=== PATIENT | female | born 1965 | race Caucasian/White ===

== ENCOUNTER → 2020-10-21 | Outpatient (CLI) | payer OTHER ==
[2020-10-26 16:07] LABS: HPV 16 Negative (Negative); HPV 18 Negative (Negative); HPV OTHER HR TYPES Negative (Negative)
== END | disposition home or self-care (01) ==
LOC: LAB 18:50 → LAB SHORT 18:50
PROVIDERS: Physician Assistant
DX: Z01.419 Encounter for gynecological examination (general) (routine) without abnormal findings (principal)
CPT/HCPCS: 87624; G0123

== ENCOUNTER → 2021-01-18 | Outpatient (CLI) | payer OTHER ==
[2021-01-21 02:08] LABS: CHLAMYDIA TRACHOMATIS, NAA Negative (Negative)
== END ==
LOC: LAB SHORT 15:00 → LAB 15:00
PROVIDERS: Physician Assistant
DX: Z11.3 Encounter for screening for infections with a predominantly sexual mode of transmission (principal)
CPT/HCPCS: 87491; 87591

== ENCOUNTER 2021-06-10 10:55 | Inpatient (IN) | payer OTHER ==
[~2021-06-10] VITALS: Ht 170.2 cm; Wt 58.0 kg
[2021-06-10 11:31] LABS: Hematocrit 35.8 % (33.0-51.0); Hemoglobin 12.6 g/dL (11.5-16.0); Mean Corpuscular HGB 30.4 pg (26.0-34.0); Mean Corpuscular HGB Conc 35.2 g/dL (31.5-36.5); Mean Corpuscular Volume 86 fL (80-100); Mean Platelet Volume 10.2 fL (9.1-12.4); Platelet Count 446 K/mm3 (150-400); RDW Coefficient Variation 12.8 % (11.7-14.2); RDW Standard Deviation 40.3 fL (35.1-46.3); Red Blood Cell Count 4.15 M/mm3 (3.80-5.20); White Blood Cell Count 22.77 K/mm3 (4.00-11.30)
[2021-06-10 11:51] LABS: Alanine Aminotransfer (ALT/SGP 76 U/L (12-78); Albumin, Blood 2.7 g/dL (3.4-5.0); Albumin/Globulin Ratio 0.6 (0.8-1.8); Alk Phos 68 U/L (50-136); Anion Gap 12 mmol/L (6-16); Aspartate Aminotrans (AST/SGOT 46 U/L (12-37); Bilirubin, Total 1.1 mg/dL (0.1-1.0); Blood Urea Nitrogen 20 mg/dL (8-24); Bun/Creatinine Ratio 39.8 (12.0-20.0); CO2, Blood 25 mmol/L (21-32); Calcium, Blood 9.1 mg/dL (8.5-10.1); Chloride, Blood 98 mmol/L (98-108); Ethanol (Alcohol), Blood, Med <3 mg/dL; Globulin, Blood 4.9 g/dL (2.2-4.0); Glomerular Filtration Rate >60 (60-); Glucose, Blood 132 mg/dL (70-99); Potassium, Blood 2.9 mmol/L (3.5-5.5); Sodium, Blood 135 mmol/L (136-145); Total Protein, Blood 7.6 g/dL (6.4-8.2)
[2021-06-10 11:55] LABS: CPK Creatine Kinase 94 U/L (26-193); Troponin I <0.015 ng/mL (0.000-0.040)
[2021-06-10 12:01] LABS: Appearance, Urine Clear (Clear); Blood, Urine 2+ (Neg); Color, Urine Amber (P-Yellow); Glucose Qualitative, Urine Neg (Neg); Ketones, Urine 4+ (Neg); Leukocyte Esterase, Urine Neg (Neg); Nitrite, Urine Neg (Neg); Protein, Urine 2+ (Neg); Specific Gravity, Urine 1.015 (1.003-1.022); Urobilinogen, Urine 2+ (Normal); pH, Urine 6.5 (5.0-8.0)
[2021-06-10 12:01] LABS: BAND PERCENT MAN 8 % (0-8); BASOPHILS PERCENT MAN 0 % (0-2); EOSINOPHILS PERCENT MAN 0 % (0-6); METAMYELOCYTE PERCENT MAN 1 % (0-0); MONOCYTES PERCENT MAN 5 % (4-13); MYELOCYTE PERCENT MAN 1 % (0-0); SEG NEUTROPHILS PERCENT MAN 77 % (41-73); TOTAL CELLS COUNTED 100
[2021-06-10 12:02] LABS: IMMATURE GRAN ABSOLUTE AUTO 1.09 K/mm3 (0.00-0.10); IMMATURE GRAN PERCENT AUTO 5 % (0-1); LYMPHOCYTES ABSOLUTE AUTO 2.39 K/mm3 (0.84-5.20); LYMPHOCYTES PERCENT AUTO 11 % (21-46); MONOCYTES ABSOLUTE AUTO 2.07 K/mm3 (0.16-1.47); MONOCYTES PERCENT AUTO 9 % (4-13); NEUTROPHILS ABSOLUTE AUTO 17.08 K/mm3 (1.96-9.15); NEUTROPHILS PERCENT AUTO 75 % (41-73)
[2021-06-10 12:04] LABS: LYMPHOCYTES ABSOLUTE MAN 1.82 K/mm3 (0.84-5.20); LYMPHOCYTES PERCENT MAN 8 % (21-46)
[2021-06-10 12:19] LABS: Bilirubin, Urine 1+ (Neg)
[2021-06-10 12:23] LABS: U Amphetamine Screen Not Detected; U Barbituate Screen Not Detected; U Benzodiazapine Screen Not Detected; U Buprenorphine Screen Not Detected; U Cannabinoids Screen DETECTED; U Cocaine Screen Not Detected; U Methadone Screen Not Detected; U Methamphetamine Screen Not Detected; U Opiates Screen Not Detected; U Oxycodone Screen Not Detected; U Phencyclidine Screen Not Detected; U Propoxyphene Screen Not Detected
[2021-06-10 12:25] LABS: Mucus Heavy (0-Heavy)
[2021-06-10 12:26] LABS: White Blood Cells, Urine 0-2 /hpf (0-5)
[2021-06-10 12:29] LABS: Squamous Epithelial Cells Few /hpf (Few)
[2021-06-10 12:31] LABS: Bacteria Few /hpf
[2021-06-10 13:25] LABS: Influenza A, PCR NEGATIVE (NEGATIVE); Influenza B, PCR NEGATIVE (NEGATIVE); Resp Syncytial Virus, PCR NEGATIVE (NEGATIVE); SARS-Cov-2 (COVID-19) PCR, MMC NEGATIVE (NEGATIVE)
[2021-06-10 14:45] LABS: International Normalized Ratio 1.08; Prothrombin Time Results 11.3 Sec (9.7-11.5)
[2021-06-10 17:21] LABS: Automated CSF WBC Count 0.496 K/mm3 (0-5); WBC Count, CSF 496 /mm3 (0-5)
[2021-06-10 17:54] LABS: RBC Count, CSF 1 /mm3 (0-0)
--- NOTE | 2021-06-10 17:54 | NUR ---
SHIFT SUMMARY/ARRIVAL TO PCU PATIENT ARRIVED TO PCU BY ED HUBER AT APORX 1630. PATIENT TRANSFERD TO PCU BED WITH SLIDER SHEET. PATIENT IS NONRESPONSIVE, WILL MOAN AND GROAN WHEN PROVIDING SKIN CARE AND REPOSITIONING. PATIENT IS OBTUNDED. VSS. SPO2 >90% ON RA. TELE SR. PATIENT HAS EXCORIATION ON IGOR AREA AND A PRESSURE SORE. PICTURES IN CHART. UNABLE TO COMPLETE ADDMISSION ASSESSMENT DUE TO PATIENT COGNITIVE STATUS AND UNABLE TO LOCATE A NUMBER FOR HER BROTHER. THIS RN COMPLETED BEST POSSIBLE WITH THE PATIENT COGNITIVE STATUS. ORAL CARE PERFORMED ON PATIENT. CALL LIGHT IS WITHIN REACH AND BED IN LOWEST POSITION WITH BED ALARM ON. WILL CONTINUE TO MONITOR AND PROVIDE CARE UNTIL HAND OFF WITH NEXT SHIFT.
[2021-06-10 17:55] LABS: Appearance, CSF Hazy (Clear); Color, CSF No Color (No Color)
[2021-06-10 18:27] LABS: Lymphocytes, CSF 32 % (40-80); Monocytes, CSF 2 % (15-45); Neutrophils, CSF 63 % (0-6); Other Cells, CSF 3 % (0-1)
[2021-06-10 19:14] LABS: Cryptococcus Neoformans/Gattii Not Detected (NOT DETECT); Enterovirus Not Detected (NOT DETECT); Escherichia Coli K1 Not Detected (NOT DETECT); Haemophilus Influenza Not Detected (NOT DETECT); Herpes Simplex Virus 1 Not Detected (NOT DETECT); Herpes Simplex Virus 2 Not Detected (NOT DETECT); Human Herpesvirus 6 Not Detected (NOT DETECT); Human Parechovirus Not Detected (NOT DETECT); Listeria Monocytogenes Not Detected (NOT DETECT); Neisseria Meningitidis Not Detected (NOT DETECT); Streptococcus Agalactiae Not Detected (NOT DETECT); Streptococcus Pneumoniae Not Detected (NOT DETECT); Varicella Zoster Virus Not Detected (NOT DETECT)
--- NOTE | 2021-06-10 20:45 | NUR ---
PT HAD SEIZURE LIKE ACTIVITY AT APPROX 20:18. LASTED APPROX 1.5 MINS VITALS WERE STABLE AND ON ROOM AIR. DR BASSETT WAS NOTIFIED ABOUT ACTIVITY WELL OF PT LAB RESULTS. ORDERS WERE PUT IN BY DR BASSETT.
[2021-06-11 03:56] LABS: BASOPHILS ABSOLUTE AUTO 0.11 K/mm3 (0.00-0.23); BASOPHILS PERCENT AUTO 1 % (0-2); EOSINOPHILS ABSOLUTE AUTO 0.03 K/mm3 (0.00-0.68); EOSINOPHILS PERCENT AUTO 0 % (0-6); Hematocrit 28.1 % (33.0-51.0); Hemoglobin 9.7 g/dL (11.5-16.0); Mean Corpuscular HGB Conc 34.5 g/dL (31.5-36.5); Mean Corpuscular Volume 90 fL (80-100); Mean Platelet Volume 10.1 fL (9.1-12.4); Platelet Count 353 K/mm3 (150-400); RDW Coefficient Variation 13.2 % (11.7-14.2); RDW Standard Deviation 43.6 fL (35.1-46.3); Red Blood Cell Count 3.13 M/mm3 (3.80-5.20); White Blood Cell Count 17.69 K/mm3 (4.00-11.30)
[2021-06-11 03:59] LABS: IMMATURE GRAN ABSOLUTE AUTO 0.71 K/mm3 (0.00-0.10); IMMATURE GRAN PERCENT AUTO 4 % (0-1); LYMPHOCYTES ABSOLUTE AUTO 2.74 K/mm3 (0.84-5.20); LYMPHOCYTES PERCENT AUTO 16 % (21-46); MONOCYTES ABSOLUTE AUTO 1.71 K/mm3 (0.16-1.47); MONOCYTES PERCENT AUTO 10 % (4-13); NEUTROPHILS ABSOLUTE AUTO 12.39 K/mm3 (1.96-9.15); NEUTROPHILS PERCENT AUTO 70 % (41-73)
[2021-06-11 04:20] LABS: Magnesium, Blood 1.8 mg/dL (1.6-2.4)
[2021-06-11 04:25] LABS: Alanine Aminotransfer (ALT/SGP 48 U/L (12-78); Albumin, Blood 1.9 g/dL (3.4-5.0); Albumin/Globulin Ratio 0.5 (0.8-1.8); Alk Phos 48 U/L (50-136); Anion Gap 7 mmol/L (6-16); Aspartate Aminotrans (AST/SGOT 31 U/L (12-37); Bilirubin, Total 0.5 mg/dL (0.1-1.0); Blood Urea Nitrogen 15 mg/dL (8-24); Bun/Creatinine Ratio 35.9 (12.0-20.0); CO2, Blood 23 mmol/L (21-32); Calcium, Blood 7.6 mg/dL (8.5-10.1); Chloride, Blood 112 mmol/L (98-108); Creatinine, Blood 0.42 mg/dL (0.40-1.00); Globulin, Blood 3.6 g/dL (2.2-4.0); Glomerular Filtration Rate >60 (60-); Glucose, Blood 110 mg/dL (70-99); Sodium, Blood 142 mmol/L (136-145); Total Protein, Blood 5.5 g/dL (6.4-8.2)
--- NOTE | 2021-06-11 06:23 | NUR ---
SHIFT SUMMARY PT HAS REMAINED OBTUNDED MOST OF THE SHIFT. SHE HAS HAD VERY LITTLE MOVEMENT. PT DOES NOT RESPOND TO COMMANDS. AT APPROX 20:18 PT HAD A SEIZURE THAT WAS APPROX 1.[address] BASSETT WAS NOTIFIED OF ACTIVITY. VITALS ARE STABLE AND PT IS ON ROOM AIR. PT CLENCHES WITH CARE, BECOMES VERY STIFF WHEN MOVING FOR TURNS. PT HAS YANG CATHETER IN PLACE AND IT IS DRAINING TO GRAVITY. CALL LIGHT IS WITHIN REACH. BED ALARM IS ACTIVATED.
--- NOTE | 2021-06-11 18:08 | NUR ---
Call from the pt's "landlord" Diego Schmitz, who is actually someone that the pt lives with. He states he is attempting to reach out to the pt's family members to contact us for information on the pt's baseline. Call from pt's son, Adin Forrest phone number [phone], who lives in [place]. He said that the pt is a recluse, heavy drinker and smoker, but in relatively good health considering her lifestyle. States he is not aware of any medical diagnoses that she might have had. He was out of contact with her for the past 5 years and only recently started talking with her again after the pt's mother of a stroke.
--- NOTE | 2021-06-11 18:27 | NUR ---
SHIFT SUMMARY PT HAS REMAINED UNRESPONSIVE. PT OPENED ONE EYE SPONTANEOUSLY DURING REPOSITIONG ON TWO OCCASIONS. PT OCCASIONALLY MOVED LEFT ARM UP AND AWAY FROM BODY IN A VERY STIFF MOVEMENT AND THEN RETURNED TO DECEREBRATE POSTURING. EYES ARE EQUAL, ROUND, REACTIVE TO LIGHT AND ACCOMADATION. WHEN ATTEMPTING ORAL CARE, PT WOULD NOT UNCLENCH JAW ENOUGH TO GET SUCTION SWAB INTO MOUTH. NO ACUTE CHANGES TO CONDITION OCCURRED.
--- NOTE | 2021-06-12 05:52 | NUR ---
SHIFT SUMMARY: PT REMAINS UNRESPONSIVE WITH EYES CLOSED IN A DECEREBRATE POSTURE. VSS T/O NIGHT. PT APPEARS TO BE IN RESPIRATORY DISTRESS AT TIMES R/T TACHYPNEA AND GRUNTING. RESPIRATORY STATUS IMPROVING WITH REPOSITIONING. HOB ELEVATED. PT REMAINS ON RA WITH O2 AT 95%. AT APPROX 0500 PT HAD A SEIZURE LASTING 45 SECONDS. PT THEN HAD ANOTHER SEIZURE AT 0510 LASTING 1.5 MIN. PT GIVEN 1MG ATIVAN. NPA INSERTED THIS MORNING PER RT. PT DOES NOT APPEAR TO BE IN DISTRESS AT THIS TIME. PLAN FOR EEG ON SUNDAY.
[2021-06-12 06:12] LABS: Albumin, Blood 1.8 g/dL (3.4-5.0); Anion Gap 10 mmol/L (6-16); Blood Urea Nitrogen 8 mg/dL (8-24); Bun/Creatinine Ratio 20.3 (12.0-20.0); CO2, Blood 19 mmol/L (21-32); Calcium, Blood 7.4 mg/dL (8.5-10.1); Chloride, Blood 113 mmol/L (98-108); Creatinine, Blood 0.39 mg/dL (0.40-1.00); Glomerular Filtration Rate >60 (60-); Glucose, Blood 107 mg/dL (70-99); Magnesium, Blood 1.5 mg/dL (1.6-2.4); Phosphorus, Blood 2.3 mg/dL (2.5-4.9); Potassium, Blood 2.7 mmol/L (3.5-5.5); Sodium, Blood 142 mmol/L (136-145); Vancomycin, Trough 4.4 ug/mL (5.0-10.0)
[2021-06-12 06:30] LABS: BASOPHILS ABSOLUTE AUTO 0.07 K/mm3 (0.00-0.23); BASOPHILS PERCENT AUTO 1 % (0-2); EOSINOPHILS ABSOLUTE AUTO 0.03 K/mm3 (0.00-0.68); EOSINOPHILS PERCENT AUTO 0 % (0-6); Hematocrit 25.9 % (33.0-51.0); Hemoglobin 8.8 g/dL (11.5-16.0); Mean Corpuscular HGB 30.7 pg (26.0-34.0); Mean Corpuscular Volume 90 fL (80-100); Mean Platelet Volume 12.1 fL (9.1-12.4); Platelet Count 228 K/mm3 (150-400); RDW Coefficient Variation 13.6 % (11.7-14.2); RDW Standard Deviation 44.6 fL (35.1-46.3); Red Blood Cell Count 2.87 M/mm3 (3.80-5.20); White Blood Cell Count 13.21 K/mm3 (4.00-11.30)
[2021-06-12 06:31] LABS: IMMATURE GRAN ABSOLUTE AUTO 0.28 K/mm3 (0.00-0.10); IMMATURE GRAN PERCENT AUTO 2 % (0-1); LYMPHOCYTES PERCENT AUTO 18 % (21-46); MONOCYTES ABSOLUTE AUTO 1.11 K/mm3 (0.16-1.47); MONOCYTES PERCENT AUTO 8 % (4-13); NEUTROPHILS ABSOLUTE AUTO 9.32 K/mm3 (1.96-9.15); NEUTROPHILS PERCENT AUTO 71 % (41-73)
[2021-06-12 12:41] LABS: SARS-Cov-2 (COVID-19) PCR, MMC NEGATIVE (NEGATIVE)
--- NOTE | 2021-06-12 13:35 | NUR ---
RECIEVED PT FROM PCU AT APPROX 1315. PT GROANS TO TACTILE STIMULI, BLINK REFLEX PRESENT WITH EYE GTT, NO BLINK TO THREAT, PUPPILS 3 BRISK BILAT. NO RESPONSE TO NOX STIM TO BUE, BLE WITHDRAW TO PAINFUL STIMULI. NPA IN PLACE FOR AIRWAY PROTECTION. VSS EXCEPT HTN. NEW PIVS PLACED. PLAN TO INTUBATE TO PROTECT AIRWAY. FC IN PLACE, INTACT AND PATENT.
[2021-06-12 14:25] LABS: Albumin, Blood 1.9 g/dL (3.4-5.0); Anion Gap 11 mmol/L (6-16); Blood Urea Nitrogen 6 mg/dL (8-24); Bun/Creatinine Ratio 15.5 (12.0-20.0); CO2, Blood 20 mmol/L (21-32); Calcium, Blood 7.3 mg/dL (8.5-10.1); Chloride, Blood 109 mmol/L (98-108); Creatinine, Blood 0.39 mg/dL (0.40-1.00); Glomerular Filtration Rate >60 (60-); Glucose, Blood 109 mg/dL (70-99); Magnesium, Blood 2.2 mg/dL (1.6-2.4); Phosphorus, Blood 3.4 mg/dL (2.5-4.9); Potassium, Blood 3.7 mmol/L (3.5-5.5); Sodium, Blood 140 mmol/L (136-145)
--- NOTE | 2021-06-12 15:29 | NUR ---
2162-2083: MD LEONG PRESENT TO INTUBATE PT FOR AIRWAY PROTECTION 1402: ATIVAN 2 MG IV GIVEN 1411: PROP 60MG IV GIVEN 1412: TYLOR 20MG IV GIVEN; MIDALOZAM 2 MG IV GIVEN 1415: PROP 40MG IV; TYLOR 30MG 1V 1418: PROP 50MG IV. IV SITE REASSESSED, POOR BLOOD RETURN, DIFFERENT IV ACCESS UTILIZED 1421 PROP 50MG IV; TYLOR 50MG IV DR LEONG SUCCESSFULLY INTUBATED WITH SIZE 8 ETT, 22 AT TEETH. B BREATH SOUNDS HEARD, CO2 COLOR CHANGE. OGT INSERTED. CXR 1442: ETT 27 AT TEETH, ADJUSTED BY RT PER MD LEONG ORDER. VENT SETTINGS AC 16, 440, 5, 30%.
--- NOTE | 2021-06-12 18:05 | NUR ---
SHIFT SUMMARY: RECEIVED PT AT APPROX 1315 FROM PCU. MINIMAL NEURO RESPONSE. BUE FLEXION TO NOX STIM, BLE WITHDRAW TO NOX STIM. PT INTUBATED FOR AIRWAY PROTECTION. PROP AT 25MCG/KG/MIN FOR SEDATION AND SECONDARY TO PREVIOUS SEIZURE ACTIVITY IN PCU. PLAN FOR SPOT EEG TOMORROW. VENT SETTINGS AC 16, 440, 5, 45% AT END OF SHIFT. OGT CLAMPED. CXR CONFIRMATION OF ETT AND OGT. FC INTACT AND PATENT. PT'S SON CALLED, INFORMED THAT ETHICS CONSULT ORDERED TO HELP ESTABLISH POC SECONDARY TO NO POA LISTED.
--- NOTE | 2021-06-12 20:00 | NUR ---
ASSUMED CARE REPORT RECEIVED FROM DAY SHIFT RN. PT INTUBATED, SEDATED ON 25MCG/KG/HR OF PROPOFOL. PUPILS 3MM EQUAL AND REACTIVE, BRISK. PT DOES NOT FOLLOW COMMANDS, WITHDRAWS FROM NOXIOUS STIMULI ON BUE+BLE. PT IS NSR ON MONITOR, NORMOTENSIVE ON MONIOR. SEE SHIFT ASSESSMENT. NO ACUTE DISTRESS NOTED. WILL CONTINUE TO MONITOR.
[2021-06-13 05:16] LABS: BASOPHILS ABSOLUTE AUTO 0.05 K/mm3 (0.00-0.23); BASOPHILS PERCENT AUTO 1 % (0-2); EOSINOPHILS ABSOLUTE AUTO 0.06 K/mm3 (0.00-0.68); EOSINOPHILS PERCENT AUTO 1 % (0-6); Hematocrit 25.9 % (33.0-51.0); Hemoglobin 9.1 g/dL (11.5-16.0); IMMATURE GRAN ABSOLUTE AUTO 0.13 K/mm3 (0.00-0.10); IMMATURE GRAN PERCENT AUTO 1 % (0-1); LYMPHOCYTES ABSOLUTE AUTO 1.99 K/mm3 (0.84-5.20); LYMPHOCYTES PERCENT AUTO 22 % (21-46); MONOCYTES PERCENT AUTO 9 % (4-13); Mean Corpuscular HGB Conc 35.1 g/dL (31.5-36.5); Mean Corpuscular Volume 88 fL (80-100); Mean Platelet Volume 10.7 fL (9.1-12.4); NEUTROPHILS ABSOLUTE AUTO 6.18 K/mm3 (1.96-9.15); NEUTROPHILS PERCENT AUTO 67 % (41-73); Platelet Count 352 K/mm3 (150-400); RDW Coefficient Variation 13.6 % (11.7-14.2); RDW Standard Deviation 43.7 fL (35.1-46.3); Red Blood Cell Count 2.94 M/mm3 (3.80-5.20); White Blood Cell Count 9.21 K/mm3 (4.00-11.30)
[2021-06-13 05:43] LABS: Anion Gap 10 mmol/L (6-16); Blood Urea Nitrogen 5 mg/dL (8-24); Bun/Creatinine Ratio 13.6 (12.0-20.0); CO2, Blood 22 mmol/L (21-32); Calcium, Blood 7.2 mg/dL (8.5-10.1); Chloride, Blood 109 mmol/L (98-108); Creatinine, Blood 0.37 mg/dL (0.40-1.00); Glomerular Filtration Rate >60 (60-); Glucose, Blood 100 mg/dL (70-99); Sodium, Blood 141 mmol/L (136-145); Vancomycin, Trough 10.9 ug/mL (5.0-10.0)
[2021-06-13 05:45] LABS: Potassium, Blood 2.4 mmol/L (3.5-5.5)
--- NOTE | 2021-06-13 06:17 | NUR ---
SHIFT SUMMARY NO ACUTE EVENTS OVERNIGHT. PT REMAINS INTUBATED AND SEDATED. PT DOES NOT FOLLOW COMMANDS OR TRACKS. PT WAS BREATHING OVER THE VENT AND COUGHING, PROPOFOL INCREASED AT THAT TIME. PT WITHDRAWS FROM NOXIUS STIMULUI, PT ON PROPOFOL AT 30MCG/KG/MIN. VENT SETTINGS AC 16/400/5/30%. NO DISTRESS NOTED. PT REMAINS SR ON MONITOR. NO HYPOTENSION NOTED ON THIS SHIFT. OG TUBE REMAINS CLAMPED BESIDES MEDICATION. YANG CATHETER DRAINING JAE URINE. 450ML OF URINE DRAINED. CRITICAL VALUE OF K+-2.4, ORDERS RECEIVED. PT TO HAVE SPOT EEG TODAY. REPORT TO BE GIVEN TO DAY SHIFT RN.
--- NOTE | 2021-06-13 07:56 | NUR ---
PNTB UPDATE: CALL FROM PNTB REP THIS AM REGARDING THIS PT. SAFE AND VAULT SERVICE MECHANIC MEDIA SENIOR RECRUITER, FAUSTINO, HAD CONTACTED [facility] REGARDING THIS PT's CONDITION. THIS RN HAS UPDATED HIM ON TODAYS PLAN OF CARE, INCLUDING EEG & PLANNED SEDATION VACATION TO ASSESS NEURO STATUS. ALSO NOTIFIED REP THAT THE PT HAS NO NEXT OF KIN CURRENTLY, WHEN QUESTIONED ABOUT REASONING FOR ETHICS CONSULTATION. NOTIFIED HIM THAT THERE ARE NO PLANS TO WITHDRAW CARE AT THIS TIME & THAT THE PT IS CURRENTLY STABLE.
--- NOTE | 2021-06-13 08:05 | NUR ---
DR AN: PROVIDER AT BEDSIDE TO MARK PT THIS AM. DISCUSSED PLAN FOR EEG & SEDATION VACATION. NO CHANGES AT THIS TIME.
--- NOTE | 2021-06-13 08:37 | NUR ---
ASSUMED CARE RECEIVED REPORT FROM FIFI EVANS AT 0700. PT SEDATED AND INTUBATED. PROPOFOL AT 30MCG/KG/MIN. SHE IS NOT ABLE TO FOLLOW ANY COMMANDS, BUT DOES OPEN MOUTH FOR ORAL CARE AND APPEARS TO SWALLOW. OCCASIONALLY BREATHS OVER VENT AND COUGHS. VENT: AC/VC 16/440/5/25%, SPO2 99%, LUNGS CLEAR T/O. HR IS SR IN 70'S, SBP IN 150'S, STRONG PULSES IN ALL EXTREMITIES. OG TUBE IN PLACE, CLAMPED. BOWEL TONES ACTIVE X4. YANG PATENT AND DRAINING TO GRAVITY, YELLOW CLEAR URINE. FOAM DRESSING IN PLACE TO COCCYX AND HEELS. THIS RN HAS UPDATED CATIE SMITH REGARDING ETHICS CONSULTATION. ORDERS REVIEWED AND WILL TREAT PRESCRIBED.
[2021-06-13 08:40] LABS: Magnesium, Blood 1.7 mg/dL (1.6-2.4); Phosphorus, Blood 2.7 mg/dL (2.5-4.9)
--- NOTE | 2021-06-13 09:53 | NUR ---
T/C completed with the principal's son, Adin Forrest, to gauge his receptivity to functioning as a proxy decision-maker during his mother's incapacitation. Adin verbalized that he was willing to provide substitute judgement and medical planning support as needed / requested. Keeping him fully apprised of any important clinical changes for better or for ill, will build trust, and likely mitigate the possibility of him wanting to pursue overly-aggressive treatment, in conditions where it would be non-beneficial, or disproportionate. His number is [phone]. Thank you for this consult. Adan Kennedy ThD
[2021-06-13 10:30] LABS: Percent Saturation 22.7 % (15.0-50.0)
--- NOTE | 2021-06-13 15:07 | NUR ---
TUBE FEED STARTED. VITAL HIGH PROTEIN @ 25ML/HR, Q30ML FLUSH. GOAL OF 40ML/HR.
--- NOTE | 2021-06-13 17:47 | NUR ---
PT REMAINS INTUBATED AND SEDATED. PROPOFOL AT 30MCG/KG/MIN. SEDATION VACATION COMPLETED THIS SHIFT, PROPOFOL OFF FROM 2040-7626, PT WAS ABLE TO OPEN EYES WTIH FORWARD GAZE, UNABLE TO FOLLOW COMMANDS, NO PURPOSEFUL MOVEMENT. TOLERATED VENT WELL, WITH OCCASIONAL COUGHING AND BREATHING OVER VENT, RR 16-20 MAX. VENT REMAINS AC/VC: 16/440/5/25%, SPO2 99-100%, LUNGS CLEAR. HR STAYED SR IN 60-80'S, SBP 140-160'S. VHP TUBE FEEDS STARTED AT 1500 @ 25ML/HR W/ Q430ML FLUSH, SET TO ALARM AT NEXT INCREASE INTERVAL, GOAL OF 40ML/HR. BOWEL TONES ACTIVE X4. YANG PATENT, DRAINING MINIMAL OUTPUT OF 425ML CLEAR, YELLOW URINE. DR. LIMA AWARE AND NO NEW ORDERS GIVEN SINCE TUBE FEED WAS STARTED TODAY. ETHICS CONSULTED AND PT'S SON, DIMITRI, IS NOW POINT OF CONTACT IN REGARDS TO PT'S PLAN OF CARE; SEE CATIE SMITH'S NOTE. PT RESTING PEACFULLY AT THIS TIME, WILL REPORT TO ONCOMING SHIFT.
--- NOTE | 2021-06-13 20:52 | NUR ---
ASSUMED CARE REPORT RECEIVED FROM DAY SHIFT RN. PT INTUBATED AND SEDATED. PT ON PROPOFOL 40MCG/KG/MIN ON ASESSMENT. PT HAS BEEN COUGHING AND BREATHING OVER VENT AND GRIMACING, PROPOFOL INCREASED TO 45MCG/KG/MIN. VENT SETTINGS 16/440/30/+5 PT DOES NOT FOLLOW COMMANDS OR TRACKS. PT SR ON MONITOR. PT HYPERTENSIVE SBP 150S-160S. OG TUBE IN PLACE, VITAL TUBE FEEDING RUNNING. PT TOLERATED WELL. NO ACUTE DISTRESS NOTED. WILL CONTINUE TO MONITOR. SEE SHIFT ASSESSMENT. SAFETY MEASURES IN PLACE.
[2021-06-14 04:57] LABS: PCO2 Arterial 28.5 mmHg (35-45); PO2 Arterial 105 mmHg (80-100); pH Blood Arterial 7.54 (7.35-7.45)
--- NOTE | 2021-06-14 05:59 | NUR ---
SHIFT SUMMARY NO ACUTE EVENTS OVERNIGHT. PT REMAINS INTUBATED AND SEDATED. PT DOES NOT FOLLOW COMMANDS. PT IS WAKING UP MORE. PROPOFOL INCREASED TO 50MCG/KG/MIN DUE TO SEVERAL EPISODES OF COUGHING AND STACKING BREATHS. ATIVAN 1MG GIVEN X 1. PT SR ON MONITOR. NO HYPOTENSIVE EPISODES. SBP 100-160S. MAPS ABOVE 65. VITAL TUBE FEEDING RUNNING VIA OG TUBE AT 45ML(GOAL) AND TOLERATING WELL. PT HAD ONE BM THIS SHIFT. YANG CATHETER IN PLACE, 600ML OF URINE DRAINED. REPORT TO BE GIVEN TO DAY SHIFT RN.
[2021-06-14 06:09] LABS: BASOPHILS ABSOLUTE AUTO 0.06 K/mm3 (0.00-0.23); BASOPHILS PERCENT AUTO 1 % (0-2); EOSINOPHILS ABSOLUTE AUTO 0.11 K/mm3 (0.00-0.68); EOSINOPHILS PERCENT AUTO 1 % (0-6); Hematocrit 27.4 % (33.0-51.0); Hemoglobin 9.4 g/dL (11.5-16.0); IMMATURE GRAN ABSOLUTE AUTO 0.12 K/mm3 (0.00-0.10); IMMATURE GRAN PERCENT AUTO 1 % (0-1); LYMPHOCYTES ABSOLUTE AUTO 2.29 K/mm3 (0.84-5.20); LYMPHOCYTES PERCENT AUTO 23 % (21-46); MONOCYTES ABSOLUTE AUTO 0.75 K/mm3 (0.16-1.47); MONOCYTES PERCENT AUTO 7 % (4-13); Mean Corpuscular HGB 30.9 pg (26.0-34.0); Mean Corpuscular HGB Conc 34.3 g/dL (31.5-36.5); Mean Corpuscular Volume 90 fL (80-100); Mean Platelet Volume 10.8 fL (9.1-12.4); NEUTROPHILS ABSOLUTE AUTO 6.78 K/mm3 (1.96-9.15); NEUTROPHILS PERCENT AUTO 67 % (41-73); Platelet Count 278 K/mm3 (150-400); RDW Coefficient Variation 13.5 % (11.7-14.2); RDW Standard Deviation 44.2 fL (35.1-46.3); Red Blood Cell Count 3.04 M/mm3 (3.80-5.20); White Blood Cell Count 10.11 K/mm3 (4.00-11.30)
[2021-06-14 06:23] LABS: Alanine Aminotransfer (ALT/SGP 25 U/L (12-78); Albumin, Blood 1.5 g/dL (3.4-5.0); Albumin/Globulin Ratio 0.4 (0.8-1.8); Alk Phos 48 U/L (50-136); Anion Gap 9 mmol/L (6-16); Aspartate Aminotrans (AST/SGOT 16 U/L (12-37); Bilirubin, Total 0.3 mg/dL (0.1-1.0); Blood Urea Nitrogen 8 mg/dL (8-24); Bun/Creatinine Ratio 23.1 (12.0-20.0); CO2, Blood 23 mmol/L (21-32); Calcium, Blood 8.2 mg/dL (8.5-10.1); Chloride, Blood 108 mmol/L (98-108); Creatinine, Blood 0.35 mg/dL (0.40-1.00); Globulin, Blood 3.6 g/dL (2.2-4.0); Glomerular Filtration Rate >60 (60-); Glucose, Blood 113 mg/dL (70-99); Magnesium, Blood 1.6 mg/dL (1.6-2.4); Phosphorus, Blood 2.5 mg/dL (2.5-4.9); Potassium, Blood 2.7 mmol/L (3.5-5.5); Sodium, Blood 140 mmol/L (136-145); Total Protein, Blood 5.1 g/dL (6.4-8.2); Vancomycin, Trough 13.6 ug/mL (5.0-10.0)
--- NOTE | 2021-06-14 08:00 | NUR ---
ASSUMED CARE RECEIVED REPORT FROM FIFI EVANS AT 0700. PT REMAINS INTUBATED AND SEDATED. PROPOFOL AT 50MCG/KG/HR. DOES NOT OPEN EYES, NO MOVEMENTS, OR RESPONSE TO PAINFUL STIMULI. DOES COUGH AND OCCASIONALLY BREATH OVER VENT. PUPILS ARE PINPOINT, BUT EQUAL AND REACTIVE. VENT AC/VC: 16/440/5/25%, SPO2 >96%. LUNGS CLEAR AND DIM IN BASES. HR IS SR IN 60-70'S. BP STABLE. TUBE FEED AT GOAL, VHP AT 40ML/HR. RESIDUALS <20ML. YANG PATENT AND DRAINING YELLOW CLEAR URINE, MINIMAL OUTPUT. LUE POWERGLIDE AND LEFT FOREARM PERIPHERAL IN PLACE AND INFUSING. AWAITING EEG TO BE DONE TODAY. ORDERS REVIEWED AND WILL TREAT PRESCRIBED.
--- NOTE | 2021-06-14 09:17 | NUR ---
PNTB UPDATE: CALL FROM GENET TUCKER REP, REQUESTING AN UPDATE ON THIS PT's CONDITION. UPDATED HER THAT THE PT's EEG WAS UNABLE TO BE COMPLETED YESTERDAY BUT SHOULD BE OCCURING TODAY. ALSO UPDATED HER ON PT's CURRENT NEURO STATUS & RESULTS OF YESTERDAY AFTERNOON's SEDATION VACATION - SEE RN NOTE. SHE STS PNT[facility] WILL CONTINUE TO FOLLOW, BUT TO PLEASE NOTIFY THEM IF FAMILY CHOOSES TO WITHDRAW CARE OR IF THE PT's NEURO STATUS CHANGES.
--- NOTE | 2021-06-14 17:52 | NUR ---
PT REMAINS INTUBATED AND SEDATED. PROPOFOL INCREASED TO 50MCG/KG/MIN D/T INCREASED COUGHING OVER VENT. EEG DONE THIS AFTERNOON. SEDATION VACATION DONE FROM 1445 TO 1554. PT OPENED EYES, BUT DID NOT TRACK, MINIMAL MOVING OF FEET, AND INCREASED COUGHING. NOT ABLE TO FOLLOW COMMANDS AND DID NOT REACT TO PAINFUL STIMULI. VENT REMAINS AC/VC: 10/440/5/25%, SPO2 >95%. LUNGS CLEAR. HR NSR, RATE 70-90'S. BP STABLE. TUBE FEED CONTINUES AT GOAL, 40ML/HR, RESIDUALS MAX OF 100ML. PT HAD A BOWEL MOVEMENT, LOOSE/LIQUID BROWN. YANG PATENT, DRAINING YELLOW, CLEAR URINE, 400ML OUT. POWERGLIDE PLACED TO SHAWNA, DRAWS AND FLUSHES WELL. POTASSIUM AT 1500 WAS 3.4, REPLACEMENT OF 40MEQ ORDERED BY DR. LIMA. ELECTROLYTE PROTOCOL NOW IN PLACE. PT REMAINED AFEBRILE T/O SHIFT. WILL REPORT TO ONCOMING SHIFT.
--- NOTE | 2021-06-14 20:09 | NUR ---
ASSUMED CARE REPORT RECEIVED FROM DAY SHIFT RN. PT INTUBATED AND SEDATED. PT ON PROPOFOL AT 50MCG/KG/MIN. PT DOES NOT FOLLOW COMMANDS OR TRACKS. PT DOES BREATHE OVER THE VENT AND COUGH INTERMITTENTLY. VENT SETTINGS 10/440/25%/+5. VHP TUBE FEEDING RUNNING AT 40ML/HR. PT SR ON MONITOR. YANG CATHETER IN PLACE. SEE SHIFT ASSESSMENT. WILL CONTINUE TO MONITOR. SAFETY MEASURES IN PLACE.
[2021-06-14 23:32] LABS: Vancomycin, Trough 16.8 ug/mL (5.0-10.0)
[2021-06-15 04:27] LABS: PCO2 Arterial 33.3 mmHg (35-45); PO2 Arterial 76.2 mmHg (80-100)
[2021-06-15 05:20] LABS: BASOPHILS ABSOLUTE AUTO 0.07 K/mm3 (0.00-0.23); BASOPHILS PERCENT AUTO 1 % (0-2); EOSINOPHILS ABSOLUTE AUTO 0.24 K/mm3 (0.00-0.68); EOSINOPHILS PERCENT AUTO 3 % (0-6); Hematocrit 31.3 % (33.0-51.0); Hemoglobin 10.4 g/dL (11.5-16.0); IMMATURE GRAN PERCENT AUTO 1 % (0-1); LYMPHOCYTES PERCENT AUTO 29 % (21-46); MONOCYTES ABSOLUTE AUTO 1.03 K/mm3 (0.16-1.47); MONOCYTES PERCENT AUTO 12 % (4-13); Mean Corpuscular HGB 30.8 pg (26.0-34.0); Mean Corpuscular HGB Conc 33.2 g/dL (31.5-36.5); Mean Corpuscular Volume 93 fL (80-100); Mean Platelet Volume 9.4 fL (9.1-12.4); NEUTROPHILS ABSOLUTE AUTO 4.85 K/mm3 (1.96-9.15); NEUTROPHILS PERCENT AUTO 55 % (41-73); Platelet Count 386 K/mm3 (150-400); RDW Coefficient Variation 13.9 % (11.7-14.2); RDW Standard Deviation 46.9 fL (35.1-46.3); Red Blood Cell Count 3.38 M/mm3 (3.80-5.20); White Blood Cell Count 8.89 K/mm3 (4.00-11.30)
[2021-06-15 05:24] LABS: Anion Gap 6 mmol/L (6-16); Blood Urea Nitrogen 9 mg/dL (8-24); Bun/Creatinine Ratio 26.6 (12.0-20.0); CO2, Blood 24 mmol/L (21-32); Calcium, Blood 7.8 mg/dL (8.5-10.1); Chloride, Blood 110 mmol/L (98-108); Creatinine, Blood 0.34 mg/dL (0.40-1.00); Glomerular Filtration Rate >60 (60-); Glucose, Blood 116 mg/dL (70-99); Magnesium, Blood 1.4 mg/dL (1.6-2.4); Potassium, Blood 3.7 mmol/L (3.5-5.5); Sodium, Blood 140 mmol/L (136-145)
--- NOTE | 2021-06-15 07:40 | NUR ---
ASSUMED CARE BEDSIDE REPORT FROM ROSITA CALIX. PT INTUBATED AND SEDATED. VENT SETTINGS AC/VC 10/440/5/25%. LUNGS CLEAR. MINIMAL SECRETIONS THROUGH ETT. PROPOFOL GTT AT 50 MCG/KG/MIN AT SHIFT CHANGED, PLACED ON STANDBY. NO RESPONSE TO VERBAL STIMULI. CORNEAL REFLEX/COUGH/GAG PRESENT. NO MOVEMENT NOTED TO UPPER EXT. SPONT MOVEMENT TO RIGHT FOOT NOTED. PUPILS 2MM, REACTIVE. ABD ROUND, SOFT, NON TENDER. BT X 4. TUBE FEEDS AT GOAL, 40 ML/HR c 30 ML/HR FLUSH q4 HR. MINIMAL RESIDUALS. YANG PATENT, DRAINING TO GRAVITY. BP STABLE. WILL CONTINUE TO MONITOR.
--- NOTE | 2021-06-15 14:00 | NUR ---
NOK - Surrogate decision maker is son, Adin Forrest [phone] ([place], [place]) Initial Pal Care visit after EMR review and Case conferences with bedside RN, Dr Pollard and Adan Kennedy. Telephone call to pt's son, Adin to update on current status and events of past two days. Adin was receptive and engaged in our conversation. I gave update on results of EEG and pt's neuro status at this time with sedation stopped this am. We briefly discussed code status and extermination inspector advanced care planning. Instructed that we are treating for infection, although no specific pathogen identified as cause of sepsis at this time. Adin does not believe his mom would want us to perform CPR under the circumstances. He states he and his mom never spoke about that specifically. He has reviewed communications with her from April to try to help solve the mystery of what has occured and only found that she mentioned feeling like sleeping a lot. We discussed possible causes for current encephalopathy and that Drs would like to give her more time with tx, hoping she may clear and have improved neuro function. Planned with Adin to give daily updates and discuss care decisions as they arise. He was appropriately tearful and struggling to talk for part of the conversation. Time and listening provided. Support and encouragement offered. Plan daily updates from Drs and staff to be provided by phone to Adin. He appreciated the call and the plan. He is aware that if his mom's neuro status does not improve that her overall prognosis for returning to independent living or survival is not good due to inability to safely eat/drink without artificial feeding/hydration via feeding tube. Adin does not believe his mom would want a feeding tube in her current totally dependent state, to maintain life. Adin was given contact information for me and our [facility] office to call with questions, concerns, thoughts re: care goals.
--- NOTE | 2021-06-15 17:28 | NUR ---
SHIFT SUMMARY PT REMAINS INTUBATED. VENT SETTINGS AC/VC 10/440/5/25%. LUNGS CLEAR. SMALL THIN CLEAR SECRETIONS. PROPOFOL ON STANDBY SINCE 0900. NEURO STATUS UNCHANGED. PT INTERMITTANTLY OPENS EYES, DOES NOT TRACK. DOES NOT ATTEMPT TO CLOSE WHEN HAND IS MOVED TOWARDS FACE. VARIOUS GAZE THIS SHIFT, CURENTLY RIGHT. CORNEAL REFLEX/COUGH/SWALLOW. GRIMACES c ORAL CARE AND TURNS. DOES NOT WITHDRAW FROM PAINFUL STIMULI. ABD ROUND, SOFT, NON TENDER. TUBE FEEDS AT GOAL. YANG PATENT, DRAINING TO GRAVITY. RECTAL TUBE PLACED FOR LIQUID STOOLS, DRAINING TO GRAVITY. VSS. WILL CONTINUE TO MONITOR UNTIL REPORT TO ONCOMING NURSE.
[2021-06-15 17:40] LABS: Vancomycin, Trough 24.1 ug/mL (5.0-10.0)
--- NOTE | 2021-06-15 21:07 | NUR ---
ASSUMED CARE REPORT RECEIVED FROM DAY SHIFT RN. PT INTUBATED, OFF SEDATION TO MONITOR NEURO STATUS. PT HAS EYES OPEN BLINKING CONSTANTLY BUT DOES NOT FOLLOW COMMANDS. VENT SETTINGS 10/400/25/+5. NSR ON MONITOR. VHP TUBE FEEDING RUNNING. YANG CATHETER IN PLACE AND DRAINING. RECTAL TUBE IN PLACE AND DRAINING. SEE SHIFT ASSESSMENT. WILL CONTINUE TO MONITOR. SAFETY MEASURES IN PLACE.
[2021-06-16 05:13] LABS: BASOPHILS ABSOLUTE AUTO 0.07 K/mm3 (0.00-0.23); BASOPHILS PERCENT AUTO 1 % (0-2); EOSINOPHILS ABSOLUTE AUTO 0.08 K/mm3 (0.00-0.68); EOSINOPHILS PERCENT AUTO 1 % (0-6); Hematocrit 26.2 % (33.0-51.0); Hemoglobin 8.8 g/dL (11.5-16.0); IMMATURE GRAN ABSOLUTE AUTO 0.07 K/mm3 (0.00-0.10); IMMATURE GRAN PERCENT AUTO 1 % (0-1); LYMPHOCYTES PERCENT AUTO 22 % (21-46); MONOCYTES ABSOLUTE AUTO 1.01 K/mm3 (0.16-1.47); MONOCYTES PERCENT AUTO 12 % (4-13); Mean Corpuscular HGB 30.9 pg (26.0-34.0); Mean Corpuscular HGB Conc 33.6 g/dL (31.5-36.5); Mean Corpuscular Volume 92 fL (80-100); NEUTROPHILS ABSOLUTE AUTO 5.44 K/mm3 (1.96-9.15); NEUTROPHILS PERCENT AUTO 64 % (41-73); Platelet Count 287 K/mm3 (150-400); RDW Standard Deviation 46.2 fL (35.1-46.3); Red Blood Cell Count 2.85 M/mm3 (3.80-5.20); White Blood Cell Count 8.57 K/mm3 (4.00-11.30)
[2021-06-16 05:25] LABS: Anion Gap 6 mmol/L (6-16); Blood Urea Nitrogen 9 mg/dL (8-24); Bun/Creatinine Ratio 29.5 (12.0-20.0); CO2, Blood 26 mmol/L (21-32); Calcium, Blood 7.8 mg/dL (8.5-10.1); Chloride, Blood 108 mmol/L (98-108); Creatinine, Blood 0.31 mg/dL (0.40-1.00); Glomerular Filtration Rate >60 (60-); Glucose, Blood 126 mg/dL (70-99); Magnesium, Blood 1.8 mg/dL (1.6-2.4); Phosphorus, Blood 2.8 mg/dL (2.5-4.9); Potassium, Blood 3.1 mmol/L (3.5-5.5); Sodium, Blood 140 mmol/L (136-145)
--- NOTE | 2021-06-16 06:00 | NUR ---
SHIFT SUMMARY NO ACUTE EVENTS OVERNIGHT. PT INTUBATED, NO SEDATION TO MONTIOR NEURO STATUS. NO CHANGE TO NEURO STATUS. PT DOES NOT FOLLOW COMMANDS, TRACK. PT DOES MOVE RIGHT ARM AND LEG. HAVE NOT SEEN PT MOVE LEFT ARM AND LEG. PT KEEPS EYES OPEN WITH RIGHT SIDED GAZE. PT NSR/ST ON MONITOR. NO EPISODES OF HYPOTENSION. VENT SETTINGS UNCHANGED AC 10/400/25%/+5. PT CONTINUES ON VHP TUBE FEEDS. RECTAL TUBE IN PLACE AND DRAINING. YANG CATHETER IN PLACE AND DRAINING. SAFETY MEASURES REMAIN IN PLACE. REPORT TO BE GIVEN TO DAY SHIFT RN.
--- NOTE | 2021-06-16 08:30 | NUR ---
ASSUMED CARE BEDSIDE REPORT FROM CRISTINA CALIX. PT INTUBATED, VENT SETTINGS AC/VC 10/440/5/25%. LUNGS CLEAR. OCCASIONAL COUGH, SMALL AMOUNT OF CLEAR SPUTUM THROUGH ETT. COUGH/GAG/SWALLOW REFLEX PRESENT. RIGHT GAZE, CORNEAL REFLEX BUT DOES NOT CLOSE EYES WHEN OBJECT IS MOVED CLOSE TO FACE. LUIGI. DRAWS EXT CLOSE TO BODY c RESISTANCE, STRONGER ON RIGHT. NSR, RATE 90'S. BP STABLE. ABD ROUND, SOFT, NON TENDER. BT X 4. TUBE FEEDS AT GOAL, MINIMAL RESIDUALS. YANG PATENT, DRAINING CLEAR YELLOW URINE TO GRAVITY. RECTAL TUBE IN PLACE, LIQUID BROWN STOOL OUT. BILATERAL POWERGLIDES, DRESSINGS C/D/I. WILL CONTINUE TO MONITOR.
--- NOTE | 2021-06-16 09:30 | NUR ---
DR LIMA ROUNDS DR CAZARES CONSULTED, WILL SEE PT THIS EVENING. CT ORDERED.
[2021-06-16 13:41] LABS: Vancomycin, Trough 13.2 ug/mL (5.0-10.0)
--- NOTE | 2021-06-16 13:56 | NUR ---
CASE CONFERENCE WITH COMMUNICATIONS MEDIA PROFESSOR, DRS AND SON T/O DAY. Attended IDT rounds in ICU this am and visited pt. She cont to gaze to hard right. She is not following commands or responding to painful stimuli per bedside RN and I was not able to elicit any responnse either. Pt has nonpurposeful movement of right UE during my visit. L side flacid with no movement noted. Neuro consult scheduled for this froilan and CT of head to be repeated today. This afternoon, pt's son, Adin was updated. He has discussed with other family members and they are requesting that pt be a DNR. Adin appreciates daily updates. He is trying to get down to visit his mom and states he will not be able to until /SUN of next week. This was passed on to pt's bedside RN and hospitalist with new orders for DNR entered per Dr. Oakley's questions re: comfort care and usp care plans/needs were answered. He does not want long distance operator ventilation or artificial nutrition/hydration for his mom and does not believe she would choose those interventions under the circumstances. Adin updated on d/c of sedation yesterday morning and that pt may be able to breath on her own without the ventilator. Informed that pt's impaired neuro status is Drs primary concern at this time, for usp survival or return to PLOF. Adin verbalized understanding.
--- NOTE | 2021-06-16 15:39 | NUR ---
EXTUBATION/CODE STATUS VENT CHANGED TO SPONT 7/5/25%. TOLERATED WELL. TIDAL VOLUMES 300'S. COUGH/GAG/SWALLOW REFLEX. PT EXTUBATED AT 1530. CALL PLACED TO SON, DISCUSSED MRI ORDERED AND POTENTIAL RESP COMPLICATIONS. AGREES TO PROCEED c MRI. VERIFIED NO INTUBATION OR COMPRESSIONS, OTHERWISE FULL TREATMENT. AWAITING MRI.
--- NOTE | 2021-06-16 18:10 | NUR ---
SHIFT SUMMARY PT EXTUBATED THIS SHIFT, SEE PREVIOUS NOTE. TOLERATED MRI WELL. PT ANSWERS SIMPLE QUESTIONS. ORIENTED TO PERSON, PLACE. UNAWARE OF EVENTS. FLAT AFFECT, NEEDS ENCOURAGEMENT TO ANSWER QUESTIONS. RETRACTS ALL EXT TO PAIN OTHER THAN LUE. TENSES BUT DOES NOT WITHDRAW. CONTINUES TO HAVE RIGHT GAZE. CT NEG, MRI PENDING. AWAITING NEURO CONSULT. ID CONSULT COMPLETE, ANTIBIOTICS CHANGED. YANG PATENT, DRAINING TO GRAVITY, RECTAL TUBE DRAINING TO GRAVITY. WILL CONTINUE TO MONITOR UNTIL REPORT TO ONCOMING NURSE.
[2021-06-17 03:50] LABS: BASOPHILS ABSOLUTE AUTO 0.09 K/mm3 (0.00-0.23); BASOPHILS PERCENT AUTO 1 % (0-2); EOSINOPHILS ABSOLUTE AUTO 0.13 K/mm3 (0.00-0.68); EOSINOPHILS PERCENT AUTO 1 % (0-6); Hematocrit 26.6 % (33.0-51.0); Hemoglobin 8.8 g/dL (11.5-16.0); IMMATURE GRAN ABSOLUTE AUTO 0.05 K/mm3 (0.00-0.10); IMMATURE GRAN PERCENT AUTO 1 % (0-1); LYMPHOCYTES ABSOLUTE AUTO 2.13 K/mm3 (0.84-5.20); LYMPHOCYTES PERCENT AUTO 23 % (21-46); MONOCYTES ABSOLUTE AUTO 1.05 K/mm3 (0.16-1.47); MONOCYTES PERCENT AUTO 11 % (4-13); Mean Corpuscular HGB 30.2 pg (26.0-34.0); Mean Corpuscular HGB Conc 33.1 g/dL (31.5-36.5); Mean Corpuscular Volume 91 fL (80-100); Mean Platelet Volume 9.9 fL (9.1-12.4); NEUTROPHILS ABSOLUTE AUTO 5.81 K/mm3 (1.96-9.15); NEUTROPHILS PERCENT AUTO 63 % (41-73); Platelet Count 366 K/mm3 (150-400); RDW Coefficient Variation 14.2 % (11.7-14.2); RDW Standard Deviation 45.4 fL (35.1-46.3); Red Blood Cell Count 2.91 M/mm3 (3.80-5.20); White Blood Cell Count 9.26 K/mm3 (4.00-11.30)
[2021-06-17 04:16] LABS: Albumin, Blood 1.6 g/dL (3.4-5.0); Anion Gap 6 mmol/L (6-16); Blood Urea Nitrogen 7 mg/dL (8-24); Bun/Creatinine Ratio 22.9 (12.0-20.0); CO2, Blood 25 mmol/L (21-32); Calcium, Blood 7.9 mg/dL (8.5-10.1); Chloride, Blood 107 mmol/L (98-108); Creatinine, Blood 0.31 mg/dL (0.40-1.00); Glomerular Filtration Rate >60 (60-); Glucose, Blood 104 mg/dL (70-99); Phosphorus, Blood 3.2 mg/dL (2.5-4.9); Potassium, Blood 3.3 mmol/L (3.5-5.5); Sodium, Blood 138 mmol/L (136-145)
[2021-06-17 04:57] LABS: Magnesium, Blood 1.4 mg/dL (1.6-2.4)
--- NOTE | 2021-06-17 06:44 | NUR ---
SHIFT SUMMARY PT ALERT, OPENS EYES SPONTANEOUSLY. AT THE START OF SHIFT PT HAD A CONSISTENT RIGHT GAZE WITH HEAD AND EYES BUT WOULD TRACK NURSE TO THE LEFT WITH EYES ONLY. DURING THE NIGHT PT BEGAN TO MOVE HEAD AND EYES TO THE LEFT. PT REMAINS INCONSISTENT WITH VERBAL RESPONSE TO QUESTIONING, AT TIMES STATING NAME AND PLACE, OTHER TIMES WILL NOT RESPOND AT ALL. AFFECT REMAINS FLAT. YANG CATH PATENT c CLEAR YELLOW URINE. RECTAL TUBE REMOVED DURING THE NIGHT, NO BM. REPLINISHING POTASSIUM AND MAGNESIUM AT THIS TIME. WILL CONTINUE TO MONITOR. REPORT TO ONCOMING NURSE.
--- NOTE | 2021-06-17 09:04 | NUR ---
ASSUMED CARE FROM NIGHT RN, REPORT GIVEN BEDSIDE. PATIENT RESTING COMFORTABLE WITH L SIDED GAZE AND NO APPARENT PERPOSFUL MOVEMENT. WILL CONTINUE TO MONITOR.
--- NOTE | 2021-06-17 15:15 | NUR ---
Son, Adin, updated on pt's status and summary of MRI results (no CVA, no bleed or abscess and suspician of menningitis as prev) per his request. He was given update on current unchanged neuro status since last updated by . He expressed appreciation for updates from staff and Dr. He will call ICU or Palliative care for updates and questions. He is still trying to be able to be here in [place] early to mid next week. I case conferenced with pt's RN, sky diver and [employer] earlier today and made a bedside visit. Spoke to pt and she appeared to be listening, could not track with eyes this am. She seemed to perk up when I told her I had been updating Adin and that he was trying to come visit. I could not verify any response, however. She did not demonstrate any nonverbal indicators of pain, agitation, restlessness or air hunger.
--- NOTE | 2021-06-17 19:45 | NUR ---
ASSUMING PT CARE: PT RESTING IN A R SIDE LAYING POSITION w/ NECK CRANED DOWNWARD & EYES w/ R GAZE. ATTEMPTED TO REPOSITION PT's HEAD & NECK, BOTH ARE VERY STIFF. HEAD SUPPORTED W/ PILLOW. PT RESPONDS APPROPRIATELY TO YES/NO QUESTIONS, SHE DID SAY "HI", OTHER RESPONSES ARE MUMBLING & MOANING. UNABLE TO FOLLOW COMMANDS. +EXTENSION & FLEXATION OF ALL EXTREMs TO NOX STIM. PERRLA. +CORNEAL REFLEX. +COUGH. +SWALLOW. NPO D/T ASPIRATION RISK.
--- NOTE | 2021-06-18 01:00 | NUR ---
PT STILL LAYING w/ NECK CRANED TO THE R SIDE. SHE APPEARS TO HAVE MORE MOVENT W/ HER EYES & NO LONGER HAS A FIXED R SIDED GAZE. @ TIMES SHE IS ABLE TO TRACK ABOUT THE ROOM & LEAN HER HEAD TOWARDS THE SOUND OF RN TALKING. WHEN ASKED IF SHE WOULD BE ABLE TO SLEEP W/ THE TV ON PT STS "YEAH, I CAN SLEEP". NO ACUTE CHANGES.
[2021-06-18 04:00] LABS: BASOPHILS ABSOLUTE AUTO 0.07 K/mm3 (0.00-0.23); BASOPHILS PERCENT AUTO 1 % (0-2); EOSINOPHILS ABSOLUTE AUTO 0.16 K/mm3 (0.00-0.68); EOSINOPHILS PERCENT AUTO 2 % (0-6); Hematocrit 27.2 % (33.0-51.0); Hemoglobin 9.2 g/dL (11.5-16.0); IMMATURE GRAN ABSOLUTE AUTO 0.06 K/mm3 (0.00-0.10); IMMATURE GRAN PERCENT AUTO 1 % (0-1); LYMPHOCYTES ABSOLUTE AUTO 1.81 K/mm3 (0.84-5.20); LYMPHOCYTES PERCENT AUTO 21 % (21-46); MONOCYTES ABSOLUTE AUTO 1.17 K/mm3 (0.16-1.47); MONOCYTES PERCENT AUTO 14 % (4-13); Mean Corpuscular HGB 31.2 pg (26.0-34.0); Mean Corpuscular HGB Conc 33.8 g/dL (31.5-36.5); Mean Corpuscular Volume 92 fL (80-100); Mean Platelet Volume 9.6 fL (9.1-12.4); NEUTROPHILS ABSOLUTE AUTO 5.19 K/mm3 (1.96-9.15); NEUTROPHILS PERCENT AUTO 61 % (41-73); Platelet Count 336 K/mm3 (150-400); RDW Standard Deviation 44.4 fL (35.1-46.3); Red Blood Cell Count 2.95 M/mm3 (3.80-5.20); White Blood Cell Count 8.46 K/mm3 (4.00-11.30)
[2021-06-18 04:24] LABS: Albumin, Blood 1.8 g/dL (3.4-5.0); Anion Gap 6 mmol/L (6-16); Blood Urea Nitrogen 9 mg/dL (8-24); Bun/Creatinine Ratio 27.8 (12.0-20.0); CO2, Blood 24 mmol/L (21-32); Chloride, Blood 106 mmol/L (98-108); Creatinine, Blood 0.32 mg/dL (0.40-1.00); Glomerular Filtration Rate >60 (60-); Glucose, Blood 113 mg/dL (70-99); Phosphorus, Blood 3.3 mg/dL (2.5-4.9); Potassium, Blood 3.8 mmol/L (3.5-5.5); Sodium, Blood 136 mmol/L (136-145)
--- NOTE | 2021-06-18 06:15 | NUR ---
REPORT GIVEN TO FIFI POPE IN PCU. PT TRANSFERRED UNITS. OOTD W/OUT INCIDENT.
--- NOTE | 2021-06-18 06:26 | NUR ---
PATIENT TRANSFERED FROM ICU, ALERT TO SELF ABLE TO TELL ME HER NAME, UNAWARE OF PLACE OR SITUATION. RIGHT FIXED GAZE HEAD DEVIATES TO THE RIGHT, LUNGS ARE COARSE THROUGHOUT, WITH CROUPY COUGH, ABDOMEN SOFT NONTENDER HYPERACTIVE BTX 4, HEART NSR 90'S SI S2 POSSIBLE MURMUR NOTED DIFFICULT PATIENT SNORING AT THE TIME OF ASSESSMENT, LUCY IS FLACCID +2 EDEMA, LUCY IS NONPURPOSEFUL MOVMENT AND LOCALIZING SOME EFFORT AGAINST GRAVITY, LLE FLACCID WITH NO MOTOR RESPONSE, RLE SOME EFFORT AGAINST GRAVITY NONPURPOSFUL MOVEMENT ABLE TO WIGGLE TOES, MEPLIX ON COCCYX, BANDAID ON LUMBAR PUNCTURE SITE, MEPLIX ON HEALS, REDNESS NOTED ON THE LEFT FRONTAL TEMPORAL REGION OF HEAD, NO BLEEDING AND/OR BRUSIING. WCTM UNTIL CHANGE OF SHIFT.
[2021-06-18 09:25] LABS: Percent Saturation 15.5 % (15.0-50.0)
[2021-06-18 10:09] LABS: THYROID PEROXIDASE (TPO) AB <8 IU/mL (0-34)
--- NOTE | 2021-06-18 17:57 | NUR ---
SHIFT SUMMARY; ASSUMED CARE AT 0700, REPORT FROM FIFI POPE. AWAKES TO VERBAL STIMULI AND ANSWERS YES OR NO QUESTIONS WITH SLOW RESPONSE. HEAD POINTING TO RIGHT, NECK STIFF AND RIDGID. RIGHT ARM RIDGID, BILATERAL LEGS FLACCID, LEFT ARM FLACCID. LEFT HAND EDEMA 2+, ELEVATED ON PILLOW THROUGHOUT SHIFT. YANG CATH IN PLACE DRAINING CLEAR URINE. CLINIMIX INFUSING. SPINAL MRI SCHEDULED FOR TOMORROW. REMAINS NPO. Q2 TURNS THROUGOUT DAY. MEPILEX HEEL PROTECTORS AND FOOT BOOTIES BILATERALLY. ATTENDS IN PLACE WITH CATH/IGOR CARE DURING SHIFT. NO ACUTE MEDICAL CHANGES, VSS, WILL CONTINUE TO MONITOR AND TREAT UNTIL CHANGE OF SHIFT.
[2021-06-18 20:09] LABS: THYROGLOBULIN ANTIBODY <1.0 IU/mL (0.0-0.9)
[2021-06-19 05:02] LABS: BASOPHILS ABSOLUTE AUTO 0.09 K/mm3 (0.00-0.23); BASOPHILS PERCENT AUTO 1 % (0-2); EOSINOPHILS PERCENT AUTO 1 % (0-6); Hematocrit 30.3 % (33.0-51.0); Hemoglobin 10.2 g/dL (11.5-16.0); IMMATURE GRAN ABSOLUTE AUTO 0.08 K/mm3 (0.00-0.10); IMMATURE GRAN PERCENT AUTO 1 % (0-1); LYMPHOCYTES ABSOLUTE AUTO 1.43 K/mm3 (0.84-5.20); LYMPHOCYTES PERCENT AUTO 12 % (21-46); MONOCYTES ABSOLUTE AUTO 1.51 K/mm3 (0.16-1.47); MONOCYTES PERCENT AUTO 12 % (4-13); Mean Corpuscular HGB 31.3 pg (26.0-34.0); Mean Corpuscular HGB Conc 33.7 g/dL (31.5-36.5); Mean Corpuscular Volume 93 fL (80-100); Mean Platelet Volume 11.5 fL (9.1-12.4); NEUTROPHILS ABSOLUTE AUTO 9.21 K/mm3 (1.96-9.15); NEUTROPHILS PERCENT AUTO 74 % (41-73); Platelet Count 266 K/mm3 (150-400); RDW Coefficient Variation 14.6 % (11.7-14.2); RDW Standard Deviation 46.6 fL (35.1-46.3); Red Blood Cell Count 3.26 M/mm3 (3.80-5.20); White Blood Cell Count 12.42 K/mm3 (4.00-11.30)
[2021-06-19 05:46] LABS: Anion Gap 10 mmol/L (6-16); Blood Urea Nitrogen 7 mg/dL (8-24); Bun/Creatinine Ratio 22.4 (12.0-20.0); CO2, Blood 21 mmol/L (21-32); Calcium, Blood 8.2 mg/dL (8.5-10.1); Chloride, Blood 105 mmol/L (98-108); Creatinine, Blood 0.31 mg/dL (0.40-1.00); Glomerular Filtration Rate >60 (60-); Glucose, Blood 96 mg/dL (70-99); Phosphorus, Blood 3.8 mg/dL (2.5-4.9); Potassium, Blood 3.9 mmol/L (3.5-5.5); Sodium, Blood 136 mmol/L (136-145)
--- NOTE | 2021-06-19 06:03 | NUR ---
SHIFT SUMMARY: PT LETHARGIC AT BEGINNING OF VANNESSA FT, DID NOT FOLLOW COMMANDS BUT HAS BECOME MORE INTERACTIVE SHIFT PROGRESSED, ABLE TO SQUEEZE MY HAND AFTER INSTRUCTION, INDEPENDENTLY MOVING LOWER EXTREMITIES, AND ABLE TO GIVE SHORT ONE WORD ANSWERS TO QUESTIONS. MOVING ALL EXTRIMITEIS BUT DOES HAVE SOME SLIGHT NEGLECT OF RIGHT SIDE, ORAL CARE GIVEN, TURN AND REPOSITION Q2 HOURS PT REQUIRES TOTAL ASSIST WITH ALL ASPECTS OF CARE, YANG PATENT AND DRAINING [place] YELLOW URINE, TELE SHOWS SR, VSS, BED LOCKED AND LOW, CALL DUBON IN REACH, FIFI CORTEZ
--- NOTE | 2021-06-19 14:49 | NUR ---
Pt had MRI today. She remains unable to ambulate. She continues to appear lethargic, and unable to verbalize more than one word answers. She denies pain at this visit. Meningitis has now been ruled out, but no clear answers as to why she is unable to ambulate. It seems likely she will need retirement placement, as this may be a new baseline. Plan to see pt again tomorrow, as well as check for PT/OT notes.
--- NOTE | 2021-06-19 18:00 | NUR ---
SHIFT SUMMARY; ASSUMED CARE AT 0700. A/A/OX3, IMPROVED FROM YESTERDAY. ANSWERING ALL QUESTIONS APPRORIATLY, SPONTANOUS TALKING AT TIMES. HEAD REMAINS POINTING TO RIGHT BUT MOVING EYES WHEN SPOKEN TO. RIGHT ARM SPONTANEOUS MOVEMENT. INTERMITANT RIGHT LEG SPONTANEOUS MOVEMENT. LEFT ARM FLACCID WITH SLIGHT ENGINE TESTER PRESENT. YANG IN PLACE DRAINING CLEAR YELLOW URINE. Q2 REPOSITIONING. BILATERAL HEEL PROTECTORS AND HEEL MEPILEX. MEPILEX ON COCCYX FOR PREVENTATIVE. CLINIMIX INFUSING. SPINAL MRI COMPLETED TODAY. WILL CONTINUE TO MONITOR AND TREAT UNTIL CHANGE OF SHIFT.
[2021-06-20 03:59] LABS: BASOPHILS ABSOLUTE AUTO 0.07 K/mm3 (0.00-0.23); BASOPHILS PERCENT AUTO 1 % (0-2); EOSINOPHILS ABSOLUTE AUTO 0.09 K/mm3 (0.00-0.68); EOSINOPHILS PERCENT AUTO 1 % (0-6); Hematocrit 28.8 % (33.0-51.0); Hemoglobin 9.8 g/dL (11.5-16.0); IMMATURE GRAN ABSOLUTE AUTO 0.06 K/mm3 (0.00-0.10); IMMATURE GRAN PERCENT AUTO 1 % (0-1); LYMPHOCYTES ABSOLUTE AUTO 1.75 K/mm3 (0.84-5.20); LYMPHOCYTES PERCENT AUTO 17 % (21-46); MONOCYTES ABSOLUTE AUTO 1.53 K/mm3 (0.16-1.47); MONOCYTES PERCENT AUTO 15 % (4-13); Mean Corpuscular HGB 31.2 pg (26.0-34.0); Mean Corpuscular Volume 92 fL (80-100); Mean Platelet Volume 11.3 fL (9.1-12.4); NEUTROPHILS ABSOLUTE AUTO 6.66 K/mm3 (1.96-9.15); NEUTROPHILS PERCENT AUTO 66 % (41-73); Platelet Count 281 K/mm3 (150-400); RDW Coefficient Variation 14.9 % (11.7-14.2); RDW Standard Deviation 47.3 fL (35.1-46.3); Red Blood Cell Count 3.14 M/mm3 (3.80-5.20); White Blood Cell Count 10.16 K/mm3 (4.00-11.30)
[2021-06-20 04:17] LABS: Anion Gap 7 mmol/L (6-16); Blood Urea Nitrogen 9 mg/dL (8-24); Bun/Creatinine Ratio 26.6 (12.0-20.0); CO2, Blood 24 mmol/L (21-32); Calcium, Blood 8.5 mg/dL (8.5-10.1); Chloride, Blood 109 mmol/L (98-108); Creatinine, Blood 0.34 mg/dL (0.40-1.00); Glomerular Filtration Rate >60 (60-); Glucose, Blood 101 mg/dL (70-99); Phosphorus, Blood 4.1 mg/dL (2.5-4.9); Potassium, Blood 3.8 mmol/L (3.5-5.5); Sodium, Blood 140 mmol/L (136-145)
--- NOTE | 2021-06-20 05:48 | NUR ---
SHIFT REPORT: PT HAS RESTFUL SHIFT, MUCH MORE ALERT AND VERBALLY INTERACTIVE, ABLE TO MOVE EXTREMITIES, BUT NOT LEFT UPPER, NOT ABLE TO MOVE LEFT ON COMMAND BUT WILL MOVE RIGHT ON COMMAND. TELE SHOWS SR, VSS, TURNED Q2 HOURS, HOB ELEVATED, REQUIRES TOTAL ASSIST WITH ALL CARES, CLINIMIX AND LIPIDS INFUSING, PT TO POSSIBLY HAVE SWALOW EVAL. BED LOCKED AND LOW, CALL DUBON IN REACH. FIFI CORTEZ
[2021-06-20 09:11] LABS: LYME IGG/IGM AB <0.91 ISR (0.00-0.90)
[2021-06-20 11:11] LABS: B. HENSELAE IGG Negative titer (Neg:<1:320); B. HENSELAE IGM Negative titer (Neg:<1:100); B. QUINTANA IGG Negative titer (Neg:<1:320); B. QUINTANA IGM Negative titer (Neg:<1:100)
--- NOTE | 2021-06-20 19:41 | NUR ---
A 55 year old female transferred to [facility] for PCU 15 with toxic metabolic encephalopathy. She is alert and oriented x1, follow some command. Left sided weakness noted. Continue on clinimix for nutrition supplementattion. Vital signs are stable. Zepeda cath is patent, draining clear yellow urine. Bilateral power glide site CDI. Continue on tele monitor , pacing in 80s.Bed alarm on and call light within reach.Continue to monitor.
--- NOTE | 2021-06-21 05:03 | NUR ---
SHIFT SUMMARY A/O TO SELF ONLY. Q2 REPOSITIONING AND ORAL CARE. L. SIDED WEAKNESS NOTED. NO ACUTE CHANES NOTED AT THIS TIME. BED IN LOWEST POSITION WITH CALL LIGHT IN REACH. WILL CONTINUE TO MONITOR AND REPORT TO ONCOMING RN.
[2021-06-21 06:48] LABS: Albumin, Blood 2.1 g/dL (3.4-5.0); Anion Gap 7 mmol/L (6-16); Blood Urea Nitrogen 11 mg/dL (8-24); Bun/Creatinine Ratio 39.1 (12.0-20.0); CO2, Blood 23 mmol/L (21-32); Calcium, Blood 8.7 mg/dL (8.5-10.1); Chloride, Blood 108 mmol/L (98-108); Creatinine, Blood 0.28 mg/dL (0.40-1.00); Glomerular Filtration Rate >60 (60-); Glucose, Blood 105 mg/dL (70-99); Phosphorus, Blood 4.3 mg/dL (2.5-4.9); Potassium, Blood 3.7 mmol/L (3.5-5.5); Sodium, Blood 138 mmol/L (136-145)
[2021-06-21] MEDS ORDERED: MASOPHEN325 M4 PO (12:37)
[2021-06-21] MEDS ORDERED: ESCI10 PO (12:37)
[2021-06-21] MEDS ORDERED: BUPR150ER PO (12:39)
--- NOTE | 2021-06-21 16:47 | NUR ---
PT AOX1-2 WITH CONFUSION AND IS VERY IMPULSIVE. POSE IS IN PLACE WELL [place] PT IS PULLING AT THINGS AND SHIFTING AROUND IN BED. START OF SHIFT PT HAD ALMOST FELL OUT OF BED AND ALARM HAD SOUNDED. THIS CLIENT SUPPORT ANALYST WITH ASSISTANCE WAS ABLE TO PREVENT FALL AND PLACE PT BACK IN BED. PT THEN IMMEDIATELY TRIED TO PULL HER SELF OUT OF BED USING HER R SIDE. DR BRYAN ORDERD POSE AT THAT TIME. L SIDE CONTINUES TO BE UNRESPONSIVE. PT IS REPOSITIONED EVERY COUPLE HOURS. PT CONTINUES TO BE NPO. BED ALARM IN PLACE WILL CONTINUE TO MONITOR.
--- NOTE | 2021-06-22 04:44 | NUR ---
SHIFT SUMMARY A/O TO SELF ONLY. L. SIDED WEAKNESS NOTED. 2P ASSIST. YANG PATENT AND DRAINING TO GRAVITY. NO ACUTE CHANGES AT THIS TIME. BED IN LOWEST POSITION WITH CALL LIGHT IN REACH. WILL CONTINUE TO MONITOR AND REPORT TO ONCOMING RN.
--- NOTE | 2021-06-22 16:42 | NUR ---
SHIFT SUMMARY PATIENT IS ALERT AND ORIENTED, X1 (SELF) MOSTLY, PLEASANT AND COOPERATIVE WITH CARE. PATIENT IS ON RA. YANG PRESENT PATENT AND DRAINING YELLOW URINE TO GRAVITY. INCONTINENT OF BOWELS. THE PATIENT WAS UPGRADED TO A MECHANICAL SOFT DIET THIS SHIFT. MEDS WHOLE IN APPLESAUCE. NO ACUTE CHANGES THIS SHIFT. WILL CONTINUE TO CARE FOR THE PATIENT UNTIL SHIFT REPORT IS GIVEN TO THE ONCOMING NURSE.
--- NOTE | 2021-06-23 04:48 | NUR ---
PT IS ORIENTED TO SELF ONLY. SHE IS IMPUSIVE AND UNAWARE OF HER LIMITATIONS. PT HAS A POWER GLIDE IN EACH FA. PT HAS A YANG DRAINING CLEAR YELLOW URINE. PT HAS A ERYTHMIC AREA ON HER RT BUTTOCK PROECTIVE MEPOLEX APPLIED. PT IS IN A A RESTRAINT VEST FOR SAFETY.
--- NOTE | 2021-06-23 17:53 | NUR ---
SHIFT SUMMARY; PATIENT REMAINS CONFUSED THROUGHOUT THE DAY. SHE IS ORIENTED TO SELF. SHE MUMBLES INCHOHERANTLY AT TIMES. THIS AM PATIENT TRIAL WITH TAKING PO MEDICATIONS. PATIENT UNABLE TO FOLLOW DIRECTIONS. CHEWED HER PO MEDICATIONS. INCLUDING KEPPRA. ORDERS LIQUID KEPPRA FOR PATIENT. SPEECH THERAPY CHANGED DIET TO PUREED. POWERGLIDE INFILTRATED AND WAS REMOVED. TIFFANIE FARMER RN
--- NOTE | 2021-06-24 03:56 | NUR ---
SHIFT SUMMARY PT REMAINS CONFUSED. ALERT TO SELF ONLY. AWAKE MUCH OF THE NIGHT. PT DID SLEEP WELL FOR SEVERAL HOURS FROM ABOUT 2300 TO 0200. PT PULLS ON ATTENDS AND OCCASIONALLY YANG CATHETER. REMAINS IN POSY VEST. PT SLIDES HERSELF DOWN TO THE BOTTOM OF THE BED CONSTANTLY. NO NONVERBAL S/S OF PAIN AND PT DENIES PAIN WHEN ASKED. VITAL SIGNS STABLE. NO ACUTE CHANGES THIS EVENING.
[2021-06-24 05:37] LABS: Hematocrit 32.8 % (33.0-51.0); Hemoglobin 10.8 g/dL (11.5-16.0); Mean Corpuscular HGB Conc 32.9 g/dL (31.5-36.5); Mean Corpuscular Volume 94 fL (80-100); Platelet Count 395 K/mm3 (150-400); RDW Coefficient Variation 14.7 % (11.7-14.2); RDW Standard Deviation 50.1 fL (35.1-46.3); Red Blood Cell Count 3.48 M/mm3 (3.80-5.20); White Blood Cell Count 7.28 K/mm3 (4.00-11.30)
[2021-06-24 06:30] LABS: Albumin, Blood 2.7 g/dL (3.4-5.0); Anion Gap 11 mmol/L (6-16); Blood Urea Nitrogen 11 mg/dL (8-24); Bun/Creatinine Ratio 34.9 (12.0-20.0); CO2, Blood 20 mmol/L (21-32); Calcium, Blood 9.1 mg/dL (8.5-10.1); Chloride, Blood 107 mmol/L (98-108); Creatinine, Blood 0.32 mg/dL (0.40-1.00); Glomerular Filtration Rate >60 (60-); Glucose, Blood 103 mg/dL (70-99); Phosphorus, Blood 4.1 mg/dL (2.5-4.9); Potassium, Blood 3.9 mmol/L (3.5-5.5); Sodium, Blood 138 mmol/L (136-145)
[2021-06-25 05:32] LABS: BASOPHILS PERCENT AUTO 2 % (0-2); EOSINOPHILS ABSOLUTE AUTO 0.42 K/mm3 (0.00-0.68); EOSINOPHILS PERCENT AUTO 7 % (0-6); Hematocrit 31.7 % (33.0-51.0); Hemoglobin 10.5 g/dL (11.5-16.0); IMMATURE GRAN ABSOLUTE AUTO 0.05 K/mm3 (0.00-0.10); IMMATURE GRAN PERCENT AUTO 1 % (0-1); LYMPHOCYTES ABSOLUTE AUTO 1.95 K/mm3 (0.84-5.20); LYMPHOCYTES PERCENT AUTO 33 % (21-46); MONOCYTES ABSOLUTE AUTO 0.96 K/mm3 (0.16-1.47); MONOCYTES PERCENT AUTO 16 % (4-13); Mean Corpuscular HGB 31.3 pg (26.0-34.0); Mean Corpuscular HGB Conc 33.1 g/dL (31.5-36.5); Mean Corpuscular Volume 94 fL (80-100); Mean Platelet Volume 10.1 fL (9.1-12.4); NEUTROPHILS ABSOLUTE AUTO 2.51 K/mm3 (1.96-9.15); NEUTROPHILS PERCENT AUTO 42 % (41-73); Platelet Count 384 K/mm3 (150-400); RDW Coefficient Variation 14.5 % (11.7-14.2); RDW Standard Deviation 49.3 fL (35.1-46.3); Red Blood Cell Count 3.36 M/mm3 (3.80-5.20); White Blood Cell Count 5.99 K/mm3 (4.00-11.30)
--- NOTE | 2021-06-25 05:35 | NUR ---
SHIFT SUMMARY SHAR CONTINUED TO PULL AT HER YANG, AND SWING HER LEGS OVER THE SIDERAILS. SHE STATED "I WANT TO GO LOOK FOR MY BROTHER", THINKING HE WAS IN THE [place]. SHE REMAINED IN A SOFT VEST KAYLI THROUGH OUT THE NIGHT DUE TO CONFUSION, PULLING AT LINES/TUBES, AND HX OF HIGH FALL RISK. YANG CATH REMAINED IN PLACE, DRAINING URINE. IV ACCESS TO LUCY POWERGLIDE. NS AT 100ML/HR, FINISHED FIRST BAG OF TWO. CONTINUING WITH EMPIRIC ABX. ROOM AIR. POTATO INSPECTOR REPORTED NSR [id number].
[2021-06-25 06:21] LABS: Alanine Aminotransfer (ALT/SGP 58 U/L (12-78); Albumin, Blood 2.5 g/dL (3.4-5.0); Albumin/Globulin Ratio 0.7 (0.8-1.8); Alk Phos 88 U/L (50-136); Anion Gap 9 mmol/L (6-16); Aspartate Aminotrans (AST/SGOT 31 U/L (12-37); Bilirubin, Total 0.2 mg/dL (0.1-1.0); Blood Urea Nitrogen 6 mg/dL (8-24); Bun/Creatinine Ratio 15.7 (12.0-20.0); CO2, Blood 23 mmol/L (21-32); Calcium, Blood 8.8 mg/dL (8.5-10.1); Chloride, Blood 109 mmol/L (98-108); Creatinine, Blood 0.38 mg/dL (0.40-1.00); Globulin, Blood 3.8 g/dL (2.2-4.0); Glomerular Filtration Rate >60 (60-); Glucose, Blood 97 mg/dL (70-99); Potassium, Blood 3.9 mmol/L (3.5-5.5); Sodium, Blood 141 mmol/L (136-145); Total Protein, Blood 6.3 g/dL (6.4-8.2)
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
[2021-06-26 04:28] LABS: BASOPHILS ABSOLUTE AUTO 0.07 K/mm3 (0.00-0.23); BASOPHILS PERCENT AUTO 1 % (0-2); EOSINOPHILS ABSOLUTE AUTO 0.51 K/mm3 (0.00-0.68); EOSINOPHILS PERCENT AUTO 8 % (0-6); Hemoglobin 9.9 g/dL (11.5-16.0); IMMATURE GRAN ABSOLUTE AUTO 0.04 K/mm3 (0.00-0.10); IMMATURE GRAN PERCENT AUTO 1 % (0-1); LYMPHOCYTES ABSOLUTE AUTO 2.21 K/mm3 (0.84-5.20); LYMPHOCYTES PERCENT AUTO 35 % (21-46); MONOCYTES ABSOLUTE AUTO 1.05 K/mm3 (0.16-1.47); MONOCYTES PERCENT AUTO 17 % (4-13); Mean Corpuscular HGB 30.8 pg (26.0-34.0); Mean Corpuscular Volume 94 fL (80-100); NEUTROPHILS PERCENT AUTO 38 % (41-73); Platelet Count 387 K/mm3 (150-400); RDW Coefficient Variation 14.5 % (11.7-14.2); Red Blood Cell Count 3.21 M/mm3 (3.80-5.20); White Blood Cell Count 6.28 K/mm3 (4.00-11.30)
[2021-06-26 04:52] LABS: Anion Gap 8 mmol/L (6-16); Blood Urea Nitrogen 6 mg/dL (8-24); Bun/Creatinine Ratio 14.9 (12.0-20.0); CO2, Blood 24 mmol/L (21-32); Chloride, Blood 110 mmol/L (98-108); Glomerular Filtration Rate >60 (60-); Glucose, Blood 97 mg/dL (70-99); Potassium, Blood 3.6 mmol/L (3.5-5.5); Sodium, Blood 142 mmol/L (136-145)
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
[2021-06-27 05:49] LABS: BASOPHILS ABSOLUTE AUTO 0.07 K/mm3 (0.00-0.23); BASOPHILS PERCENT AUTO 1 % (0-2); EOSINOPHILS ABSOLUTE AUTO 0.52 K/mm3 (0.00-0.68); EOSINOPHILS PERCENT AUTO 8 % (0-6); Hematocrit 31.5 % (33.0-51.0); Hemoglobin 10.3 g/dL (11.5-16.0); IMMATURE GRAN ABSOLUTE AUTO 0.04 K/mm3 (0.00-0.10); IMMATURE GRAN PERCENT AUTO 1 % (0-1); LYMPHOCYTES ABSOLUTE AUTO 1.87 K/mm3 (0.84-5.20); LYMPHOCYTES PERCENT AUTO 30 % (21-46); MONOCYTES PERCENT AUTO 17 % (4-13); Mean Corpuscular HGB 30.8 pg (26.0-34.0); Mean Corpuscular HGB Conc 32.7 g/dL (31.5-36.5); Mean Corpuscular Volume 94 fL (80-100); NEUTROPHILS ABSOLUTE AUTO 2.73 K/mm3 (1.96-9.15); NEUTROPHILS PERCENT AUTO 43 % (41-73); RDW Coefficient Variation 14.6 % (11.7-14.2); RDW Standard Deviation 49.8 fL (35.1-46.3); Red Blood Cell Count 3.34 M/mm3 (3.80-5.20); White Blood Cell Count 6.33 K/mm3 (4.00-11.30)
[2021-06-27 06:40] LABS: Magnesium, Blood 1.7 mg/dL (1.6-2.4)
[2021-06-27 06:56] LABS: Mean Platelet Volume 10.6 fL (9.1-12.4)
[2021-06-27 07:13] LABS: Alanine Aminotransfer (ALT/SGP 38 U/L (12-78); Albumin, Blood 2.5 g/dL (3.4-5.0); Albumin/Globulin Ratio 0.7 (0.8-1.8); Alk Phos 78 U/L (50-136); Anion Gap 12 mmol/L (6-16); Aspartate Aminotrans (AST/SGOT 19 U/L (12-37); Bilirubin, Total 0.1 mg/dL (0.1-1.0); Blood Urea Nitrogen 7 mg/dL (8-24); Bun/Creatinine Ratio 17.7 (12.0-20.0); CO2, Blood 21 mmol/L (21-32); Calcium, Blood 8.9 mg/dL (8.5-10.1); Chloride, Blood 108 mmol/L (98-108); Globulin, Blood 3.8 g/dL (2.2-4.0); Glomerular Filtration Rate >60 (60-); Glucose, Blood 96 mg/dL (70-99); Phosphorus, Blood 4.7 mg/dL (2.5-4.9); Potassium, Blood 3.9 mmol/L (3.5-5.5); Sodium, Blood 141 mmol/L (136-145); Total Protein, Blood 6.3 g/dL (6.4-8.2)
[2021-06-27 07:54] LABS: Platelet Count 347 K/mm3 (150-400)
--- NOTE | 2021-06-27 18:01 | NUR ---
SHIFT SUMMARY: PT A/O TO SELF ONLY, CONFUSED, HALLUCINATING, IMPULSIVE AND NEEDS FREQUENT RE-ORIENTATION AND RE-DIRECTION. PLEASANT TODAY WITH CARE. PT IS ONE PERSON MAX ASSIST WITH WALKER AND GAIT BELOT TO BATHROOM. INCONTINENT AT NIGHT, CONTINENT DAYTIME. PT DENIES PAIN/N/V. PT EATING AND ABLE TO FEED SELF TODAY WITH SPOON. PT CONTINUED TO NEED KAYLI/ 4 SIDE RAIL RESTRAINT DUE TO IMPULSIVENESS WHILE AWAKE.
--- NOTE | 2021-06-28 04:16 | NUR ---
SHIFT SUMMARY ADMITTED FOR TOXIC METABOLIC ENCEPHALOPATHY/ ASEPTIC MENINGITIS OF UNKNOWN ETIOLOGY. DNR CODE. SHE DID HAVE NEW ONSET SEIZURES AFTER ADMIT, BRIE IS SCHEDULED W/GOOD EFFECT. PLAN IS FOR PLACEMENT TO [facility]. SHE DOES HALLUCINATE. KAYLI VEST IS IN PLACE. SHE IS IMPULSIVE AND FREQUENTLY ATTEMPTS TO EXIT THE BED. SHE IS A FALL RISK. 1 PERSON ASSIST W/FWW & GB - BRP. SHE WAS INCONTINENT THIS SHIFT. OT, ST, AND PHYSICAL THERAPIES ASSISTING WITH THIS PT. DR. WOLFE IS INFECTIOUS DISEASE CONSULT. DR. RIZO IS PSYCHIATRIC CONSULT.
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
--- NOTE | 2021-06-29 04:17 | NUR ---
SHIFT SUMMARY ADMITTED FOR AESEPTIC MENINGITIS OF UNKNOWN ETIOLOGY/AMS. DNR CODE. PLAN IS FOR PLACEMENT TO [facility]. KAYLI VEST IN PLACE. PT IS IMPULSIVE, HALLUCINATES. SHE IS A HIGH FALL RISK, 1 PERSON ASSIST W/GB & FWW - BRP. THIS SHIFT SHE HAS HAD A FEW BRIEF PERIODS OF AGITATION, SHE DID CALM DOWN QUICKLY HOWEVER. DR. WOLFE IS INFECTIOUS DISEASE CONSULT. DR. FARRELL IS PSYCHIATRIC CONSULT. ST, OT, AND PHYSICAL THERAPIES ARE ASSISTING W/THIS PT.
[2021-06-29 05:32] LABS: BASOPHILS ABSOLUTE AUTO 0.07 K/mm3 (0.00-0.23); BASOPHILS PERCENT AUTO 1 % (0-2); EOSINOPHILS ABSOLUTE AUTO 0.55 K/mm3 (0.00-0.68); EOSINOPHILS PERCENT AUTO 8 % (0-6); Hematocrit 33.2 % (33.0-51.0); IMMATURE GRAN ABSOLUTE AUTO 0.07 K/mm3 (0.00-0.10); IMMATURE GRAN PERCENT AUTO 1 % (0-1); LYMPHOCYTES ABSOLUTE AUTO 2.62 K/mm3 (0.84-5.20); LYMPHOCYTES PERCENT AUTO 37 % (21-46); MONOCYTES ABSOLUTE AUTO 1.03 K/mm3 (0.16-1.47); MONOCYTES PERCENT AUTO 15 % (4-13); Mean Corpuscular HGB 31.1 pg (26.0-34.0); Mean Corpuscular HGB Conc 33.1 g/dL (31.5-36.5); Mean Corpuscular Volume 94 fL (80-100); Mean Platelet Volume 10.4 fL (9.1-12.4); NEUTROPHILS ABSOLUTE AUTO 2.78 K/mm3 (1.96-9.15); NEUTROPHILS PERCENT AUTO 39 % (41-73); Platelet Count 389 K/mm3 (150-400); RDW Coefficient Variation 15.1 % (11.7-14.2); RDW Standard Deviation 51.5 fL (35.1-46.3); Red Blood Cell Count 3.54 M/mm3 (3.80-5.20); White Blood Cell Count 7.12 K/mm3 (4.00-11.30)
[2021-06-29 06:34] LABS: Alanine Aminotransfer (ALT/SGP 36 U/L (12-78); Albumin, Blood 2.9 g/dL (3.4-5.0); Albumin/Globulin Ratio 0.7 (0.8-1.8); Alk Phos 76 U/L (50-136); Anion Gap 11 mmol/L (6-16); Aspartate Aminotrans (AST/SGOT 15 U/L (12-37); Bilirubin, Total 0.2 mg/dL (0.1-1.0); Blood Urea Nitrogen 14 mg/dL (8-24); Bun/Creatinine Ratio 34.8 (12.0-20.0); C-REACTIVE PROTEIN, EXT RANGE 0.604 mg/dL (0.000-0.300); CO2, Blood 25 mmol/L (21-32); Calcium, Blood 9.6 mg/dL (8.5-10.1); Chloride, Blood 104 mmol/L (98-108); Globulin, Blood 3.9 g/dL (2.2-4.0); Glomerular Filtration Rate >60 (60-); Glucose, Blood 93 mg/dL (70-99); Magnesium, Blood 1.9 mg/dL (1.6-2.4); Phosphorus, Blood 4.9 mg/dL (2.5-4.9); Potassium, Blood 4.2 mmol/L (3.5-5.5); Sodium, Blood 140 mmol/L (136-145); Total Protein, Blood 6.8 g/dL (6.4-8.2)
--- NOTE | 2021-06-29 18:14 | NUR ---
SHIFT SUMMARY: PT A/O X 3 FORGETFUL AND CONTINUES TO HAVE DELUSIONS BUT NOT FREQUENT. BELIEVED THIS MORNING SHE HAD BEEN DISCHARGED HOME YESTERDAY AND WAS AT HOME AND WAS WONDERING WHY I WAS IN HER HOME. SHE DID REMEMBER ME. PT ARGUED WITH REORIENTATION BUT DID NOT PUSH TO MUCH. PT WAS SLEEPING MOST OF THE TIME BUT EASILY AROUSABLE FOR CARES, PT/OT, MEALS. PT WAS NOT IMPULSIVE OR ARGUMENTATIVE YESTERDAY. PT NOT IMPULSIVE OR ATTEMPTING TO GET OUT OF BED FREQUENTLY BUT DID NOT USE CALL LIGHT APPROPRIATELY EITHER. PT VOIDING CLEAR YELLOW URINE, EATING WELL. NO PRN PSYCHOTROPIC MEDICATIONS NEEDED TO BE GIVEN TODAY. PT MAKING GOOD PROGRESS.
--- NOTE | 2021-06-30 04:33 | NUR ---
SHIFT SUMMARY PT ADMITTED FOR AMS. DNR CODE.PLAN IS FOR PLACEMENT.PT IS CALMER TODAY AND LESS AGITARED.NO NEW EVENTS OR CONCERNS TODAY.
[2021-06-30 07:10] LABS: ANTI-GLIAL NUCLEAR AB TYPE 1 Negative titer (<1:240); PURKINJE CELL CYTOP.AB TYPE TR Negative titer (<1:240)
--- NOTE | 2021-06-30 17:24 | NUR ---
SHIFT SUMMARY PT IS AAO TO SELF AND SITUATION. PLEASANTLY CONFUSED, REDIRECTABLE. COOPERATIVE TO CARE. NO C/O PAIN OR ANY DISCOMFORT. NO C/O CP, SOB, OR N/V/D. PT REQUIRES 2P MAX ASSIST WITH BED MOBILITY AND WITH TRANSFERS. NO C/O DYSURIA. PT REMAINS ON KAYLI VEST FOR FALL PREVENTION, PT IS IMPULSIVE AND HIGH FALL RISK. PT CURRENTLY SITTING ON A RECLINER AT THIS TIME. PT IS CALM AND COMFORTABLE AT THIS TIME. CALL LIGHT WITHIN REACH.
--- NOTE | 2021-07-01 04:38 | NUR ---
DIRECTOR BUSINESS TRAVEL SUMMARY PATIENT HAD A FAIR SHIFT. STLL VERY MUCH IMPULSIVE. REQUESTED FOR ANXIETY MEDICATION. SHE ALREADY HAS ZYPREXA ORDERED, IT WAS ADMINISTERED TO PT. SAFETY MEASURES IN PLACE FOR THE PT. WILL CONTINUE TO MONITOR HER.
[2021-07-01 04:41] LABS: BASOPHILS PERCENT AUTO 1 % (0-2); EOSINOPHILS ABSOLUTE AUTO 0.45 K/mm3 (0.00-0.68); EOSINOPHILS PERCENT AUTO 5 % (0-6); Hematocrit 36.5 % (33.0-51.0); Hemoglobin 11.8 g/dL (11.5-16.0); IMMATURE GRAN ABSOLUTE AUTO 0.12 K/mm3 (0.00-0.10); IMMATURE GRAN PERCENT AUTO 1 % (0-1); LYMPHOCYTES ABSOLUTE AUTO 3.21 K/mm3 (0.84-5.20); LYMPHOCYTES PERCENT AUTO 37 % (21-46); MONOCYTES ABSOLUTE AUTO 1.19 K/mm3 (0.16-1.47); MONOCYTES PERCENT AUTO 14 % (4-13); Mean Corpuscular HGB 30.7 pg (26.0-34.0); Mean Corpuscular HGB Conc 32.3 g/dL (31.5-36.5); Mean Corpuscular Volume 95 fL (80-100); Mean Platelet Volume 9.3 fL (9.1-12.4); NEUTROPHILS ABSOLUTE AUTO 3.56 K/mm3 (1.96-9.15); NEUTROPHILS PERCENT AUTO 41 % (41-73); Platelet Count 445 K/mm3 (150-400); RDW Coefficient Variation 15.1 % (11.7-14.2); RDW Standard Deviation 52.5 fL (35.1-46.3); Red Blood Cell Count 3.84 M/mm3 (3.80-5.20); White Blood Cell Count 8.63 K/mm3 (4.00-11.30)
[2021-07-01 05:29] LABS: Anion Gap 8 mmol/L (6-16); Blood Urea Nitrogen 18 mg/dL (8-24); Bun/Creatinine Ratio 35.9 (12.0-20.0); C-REACTIVE PROTEIN, EXT RANGE 0.418 mg/dL (0.000-0.300); CO2, Blood 28 mmol/L (21-32); Calcium, Blood 9.5 mg/dL (8.5-10.1); Chloride, Blood 105 mmol/L (98-108); Glomerular Filtration Rate >60 (60-); Glucose, Blood 82 mg/dL (70-99); Potassium, Blood 4.2 mmol/L (3.5-5.5); Sodium, Blood 141 mmol/L (136-145)
--- NOTE | 2021-07-01 16:15 | NUR ---
SHIFT SUMMARY PT IS AO AND PLEASANT THIS SHIFT. RESTRAINTS REMOVED THIS AM. PT DENIES PAIN, N/V, SOB. PT WORKED WITH PT/OT AND IS ONE ASSIST. PT APPETITE IS GOOD. NO EVENTS THIS SHIFT AND PT IS COOPERATIVE WITH CARE. PT IS IN BED, CALL LIGHT IN REACH, BED IN LOW POSITION.
--- NOTE | 2021-07-02 05:17 | NUR ---
WALL ATTENDANT SUMMARY PATIENT WAS CALM THROUGH OUT THE NIGHT. SHE LODGED NIL COMPLAINTS. HER VITALS REMAINED STABLE. SAFETY MEASURES IN PLACE. WILL CONTINUE TO MONITOR HER.
--- NOTE | 2021-07-02 17:02 | NUR ---
SHIFT SUMMARY PT IS AO AND PLEASANT. PT DENIES PAIN, N/V, SOB. PT UP WITH ONE ASSIST AND WORKED WITH PT THIS SHIFT. PT APPETITE IS GOOD. PT AWAITING PLACEMENT. PT IS IN CHAIR, CALL LIGHT IN REACH, LOW POSITION.
[2021-07-03 04:43] LABS: BASOPHILS ABSOLUTE AUTO 0.08 K/mm3 (0.00-0.23); BASOPHILS PERCENT AUTO 1 % (0-2); EOSINOPHILS ABSOLUTE AUTO 0.37 K/mm3 (0.00-0.68); EOSINOPHILS PERCENT AUTO 5 % (0-6); Hematocrit 32.5 % (33.0-51.0); Hemoglobin 10.5 g/dL (11.5-16.0); IMMATURE GRAN ABSOLUTE AUTO 0.11 K/mm3 (0.00-0.10); IMMATURE GRAN PERCENT AUTO 2 % (0-1); LYMPHOCYTES ABSOLUTE AUTO 2.57 K/mm3 (0.84-5.20); LYMPHOCYTES PERCENT AUTO 35 % (21-46); MONOCYTES ABSOLUTE AUTO 1.04 K/mm3 (0.16-1.47); MONOCYTES PERCENT AUTO 14 % (4-13); Mean Corpuscular HGB 30.9 pg (26.0-34.0); Mean Corpuscular HGB Conc 32.3 g/dL (31.5-36.5); Mean Corpuscular Volume 96 fL (80-100); Mean Platelet Volume 9.4 fL (9.1-12.4); NEUTROPHILS ABSOLUTE AUTO 3.16 K/mm3 (1.96-9.15); NEUTROPHILS PERCENT AUTO 43 % (41-73); Platelet Count 406 K/mm3 (150-400); RDW Coefficient Variation 15.1 % (11.7-14.2); RDW Standard Deviation 52.7 fL (35.1-46.3); White Blood Cell Count 7.33 K/mm3 (4.00-11.30)
[2021-07-03 05:02] LABS: Anion Gap 7 mmol/L (6-16); Blood Urea Nitrogen 19 mg/dL (8-24); Bun/Creatinine Ratio 42.7 (12.0-20.0); CO2, Blood 27 mmol/L (21-32); Calcium, Blood 9.2 mg/dL (8.5-10.1); Chloride, Blood 108 mmol/L (98-108); Creatinine, Blood 0.45 mg/dL (0.40-1.00); Glomerular Filtration Rate >60 (60-); Glucose, Blood 102 mg/dL (70-99); Potassium, Blood 4.3 mmol/L (3.5-5.5); Sodium, Blood 142 mmol/L (136-145)
--- NOTE | 2021-07-03 05:04 | NUR ---
POISING INSPECTOR SUMMARY PATIENT HAD AN UNEVENTFUL NIGHT. SHE WAS ABLE TO EXPRESS HER NEEDS APPROPRIATELY. SHE LODGED NIL COMPLAINTS. VITALS WERE STABLE. WILL CONTINUE TO MONITOR HER.
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
--- NOTE | 2021-07-04 04:41 | NUR ---
SHIFT SUMMARY PT IS A 55 Y/O FEMALE, ADMITTED FOR TOXIC METABOLIC ENCEPHALOPATHY. SHE IS A&O X SELF ONLY, VERY CONFUSED WITH VISUAL AND AUDITORY HALLUCINATIONS. PT WAS UP OUT OF BED FREQUENTLY DURING THE NIGHT, AND AGITATED AT TIMES WITH STAFF WHEN ATTEMPTING TO REORIENT HER AND REMIND HER TO USE HER CALL LIGHT. NO C/O ACUTE PAIN, NAUSEA OR SOB. VITAL SIGNS STABLE. THIS AM AT APPROXIMATELY 0515, PT WAS PLACED IN KAYLI VEST RESTRAINT FOR PATIENT SAFETY. NO OTHER ACUTE CHANGES IN PT CONDITION NOTED DURING THE NIGHT. WILL CONTINUE TO MONITOR AND TREAT PER EMAR UNTIL HAND OFF TO DAY SHIFT RN.
[2021-07-04 05:11] LABS: BASOPHILS ABSOLUTE AUTO 0.08 K/mm3 (0.00-0.23); BASOPHILS PERCENT AUTO 1 % (0-2); EOSINOPHILS ABSOLUTE AUTO 0.31 K/mm3 (0.00-0.68); EOSINOPHILS PERCENT AUTO 5 % (0-6); Hematocrit 30.9 % (33.0-51.0); Hemoglobin 10.2 g/dL (11.5-16.0); IMMATURE GRAN ABSOLUTE AUTO 0.06 K/mm3 (0.00-0.10); IMMATURE GRAN PERCENT AUTO 1 % (0-1); LYMPHOCYTES ABSOLUTE AUTO 2.42 K/mm3 (0.84-5.20); LYMPHOCYTES PERCENT AUTO 36 % (21-46); MONOCYTES ABSOLUTE AUTO 0.99 K/mm3 (0.16-1.47); MONOCYTES PERCENT AUTO 15 % (4-13); Mean Corpuscular HGB 31.3 pg (26.0-34.0); Mean Corpuscular Volume 95 fL (80-100); NEUTROPHILS ABSOLUTE AUTO 2.83 K/mm3 (1.96-9.15); NEUTROPHILS PERCENT AUTO 42 % (41-73); Platelet Count 393 K/mm3 (150-400); RDW Coefficient Variation 14.8 % (11.7-14.2); RDW Standard Deviation 50.9 fL (35.1-46.3); Red Blood Cell Count 3.26 M/mm3 (3.80-5.20); White Blood Cell Count 6.69 K/mm3 (4.00-11.30)
[2021-07-04 06:05] LABS: Alanine Aminotransfer (ALT/SGP 26 U/L (12-78); Albumin, Blood 2.9 g/dL (3.4-5.0); Albumin/Globulin Ratio 0.8 (0.8-1.8); Alk Phos 63 U/L (50-136); Anion Gap 8 mmol/L (6-16); Aspartate Aminotrans (AST/SGOT 15 U/L (12-37); Bilirubin, Total 0.2 mg/dL (0.1-1.0); Blood Urea Nitrogen 14 mg/dL (8-24); Bun/Creatinine Ratio 31.1 (12.0-20.0); C-REACTIVE PROTEIN, EXT RANGE 0.435 mg/dL (0.000-0.300); CO2, Blood 25 mmol/L (21-32); Chloride, Blood 107 mmol/L (98-108); Creatinine, Blood 0.45 mg/dL (0.40-1.00); Globulin, Blood 3.6 g/dL (2.2-4.0); Glomerular Filtration Rate >60 (60-); Glucose, Blood 93 mg/dL (70-99); Magnesium, Blood 1.8 mg/dL (1.6-2.4); Potassium, Blood 4.1 mmol/L (3.5-5.5); Sodium, Blood 140 mmol/L (136-145); Total Protein, Blood 6.5 g/dL (6.4-8.2)
--- NOTE | 2021-07-04 17:10 | NUR ---
PATIENT SAFETY. NO LONGER ABLE TO KEEP PATIENT SAFE AND FREE FROM FALLS WITH CURRENT INTERVENTIONS (ALARMS, FREQUENT ROUNDING, POSSESSIONS IN REACH, CALL LIGHT WITHIN REACH, MODIFICATION TO ENVIRONMENT INCLUDED DECREASED SOUNDS, DARKENED ROOM, AND FREE FROM CLUTTER IN THE ROOM AND PRN MEDICATIONS). PROVIDED EDUCATION THROUGHOUT THE DAY ON ROOM SAFETY AND USING THE CALL LIGHT. PATIENT IS ABLE TO REPEAT BACK TO THE RN, BUT CONTINUES TO BE IMPULSIVE AND JUMP OUT OF BED. PATIENT UNSTEADY ON HER FEET. NOTIFIED DR. MORA. NEW ORDERS RECEIVED AND ENTERED.
--- NOTE | 2021-07-04 20:08 | NUR ---
END OF SHIFT SUMMARY: PATIENT MEDICATED ONCE FOR PAIN. PATIENT VERY AGITATED AND UPSET ABOUT BEGINNING OF SHIFT ABOUT THE KAYLI VEST. TRIAL OUT OF RESTRAINTS DURING THE DAY. PATIENT REPORTED UNDERSTANDING OF NEED TO USE CALL LIGHT AND DEMONSTRATED TO THE RN. HOWEVER, PATIENT CONTINUED TO BE IMPULSIVE AND JUMP OUT OF BED. PATIENT UNSTEADY ON HER FEET. BY THE END OF SHIFT, PATIENT WAS INCREASINGLY AGITATED AND AT RISK FOR FALLING. SEE NURSES NOTE. PATIENT CALM AND UNDERSTOOD WHY THE KAYLI VEST WAS PLACED. PATIENT HAS AN EXCELLENT APPETITE. PATIENT IS ANXIOUS TO GET OUT OF THE HOSPITAL. THIS MOTIVATES THE PATIENT TO FOLLOW DIRECTIONS AND PARTICIPATE IN HER CARE. PATIENT MET WITH LEARNING AND DEVELOPMENT CONSULTANT FROM [facility] TO DAY. PATIENT CALM DURING THE INTERVIEW.
--- NOTE | 2021-07-05 02:29 | NUR ---
pt continues confused requiring im zyprexa 10 mg with minimal effected on confused aggitated behaviors.,she has vest restraint to prevent unassisted unsafe transfers. Up to BSC with mod assist cues & guided with fww & gait belt. She tries repeatedly to get out of bed despite toileting & snacks.Cooperative with oral meds,takes finger foods with setup. continues to hallucinate, pick at air & floor when up.
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
--- NOTE | 2021-07-05 18:10 | NUR ---
SHIFT SUMMARY: NO ACUTE EVENTS. DR. KELLY ADJUSTED MEDICATIONS. PT SLEPT MOST OF THE DAY, BEHAVIOR QUIET. HAVING A/V HALLUCINATIONS, THINKS NURSING STAFF IS LAUGHING AT HER; ASSURED HER THIS WAS NOT THE CASE, BUT SHE HEARS STAFF IN HALLWAY. USING BSC WITH ASSISTANCE. MODERATE APPETITE. ON ROOM AIR, NO COUGH. REMAINED IN KAYLI VEST SHE IS CONFUSED, IMPULSIVE, AND VERY WEAK.
[2021-07-06 04:55] LABS: BASOPHILS ABSOLUTE AUTO 0.05 K/mm3 (0.00-0.23); BASOPHILS PERCENT AUTO 1 % (0-2); EOSINOPHILS ABSOLUTE AUTO 0.19 K/mm3 (0.00-0.68); EOSINOPHILS PERCENT AUTO 2 % (0-6); Hematocrit 31.3 % (33.0-51.0); Hemoglobin 10.2 g/dL (11.5-16.0); IMMATURE GRAN ABSOLUTE AUTO 0.05 K/mm3 (0.00-0.10); IMMATURE GRAN PERCENT AUTO 1 % (0-1); LYMPHOCYTES ABSOLUTE AUTO 1.63 K/mm3 (0.84-5.20); LYMPHOCYTES PERCENT AUTO 17 % (21-46); MONOCYTES ABSOLUTE AUTO 1.01 K/mm3 (0.16-1.47); MONOCYTES PERCENT AUTO 11 % (4-13); Mean Corpuscular HGB Conc 32.6 g/dL (31.5-36.5); Mean Corpuscular Volume 95 fL (80-100); Mean Platelet Volume 9.5 fL (9.1-12.4); NEUTROPHILS ABSOLUTE AUTO 6.67 K/mm3 (1.96-9.15); NEUTROPHILS PERCENT AUTO 70 % (41-73); Platelet Count 382 K/mm3 (150-400); RDW Standard Deviation 51.9 fL (35.1-46.3); Red Blood Cell Count 3.29 M/mm3 (3.80-5.20)
--- NOTE | 2021-07-06 05:04 | NUR ---
PT REMAINS AAOX1, IMPULSIVE WITH A/V HALLUCINATIONS. REMAINS IN KAYLI VEST, REASSESSED Q2H. NO SEIZURE ACTIVITY NOTED. PT WAS COOPERATIVE WITH TAKING MEDICATIONS AFTER SOME TIME INSPECTING THE MEDICATION CUP. PT HAD PERIODS OF AGITATION, MEDICATED PER EMAR WITH GOOD EFFECT. BED ALARM REMAINS ON. BED IS IN LOW POSITION WITH THE CALL LIGHT WITHIN EASY REACH. DENIES PAIN AND DISCOMFORT. WILL CONTINUE TO MONITOR.
[2021-07-06 05:53] LABS: Alanine Aminotransfer (ALT/SGP 25 U/L (12-78); Albumin, Blood 2.8 g/dL (3.4-5.0); Albumin/Globulin Ratio 0.8 (0.8-1.8); Alk Phos 62 U/L (50-136); Anion Gap 9 mmol/L (6-16); Aspartate Aminotrans (AST/SGOT 10 U/L (12-37); Bilirubin, Total 0.2 mg/dL (0.1-1.0); Blood Urea Nitrogen 16 mg/dL (8-24); Bun/Creatinine Ratio 31.9 (12.0-20.0); CO2, Blood 24 mmol/L (21-32); Calcium, Blood 9.2 mg/dL (8.5-10.1); Chloride, Blood 108 mmol/L (98-108); Globulin, Blood 3.5 g/dL (2.2-4.0); Glomerular Filtration Rate >60 (60-); Glucose, Blood 108 mg/dL (70-99); Potassium, Blood 4.2 mmol/L (3.5-5.5); Sodium, Blood 141 mmol/L (136-145); Total Protein, Blood 6.3 g/dL (6.4-8.2)
--- NOTE | 2021-07-06 14:35 | NUR ---
Spoke with Dr Rob prior to Pt and discussed case. Pt may benefit from including her with code status wishes. Pt resting in bed upon arrival. OT Kaitlynn just finished working with Pt. Pt is A&OX3/4. Pt did initially get confused for reason of hospital stay but with some brief and gentle coaching Pt did answer correctly. Reviewed plan of care with Pt and assessed her understanding of her current health conditions and care needs. Pt reports feeling that she can currently live independent and does not feel she needs assistance. Offered therapeutic listening and discussed recommendations. Pt appears to have poor insight and low level of understanding. Discussed current code status and reasons why family decided for DNR status. Gentle education on CPR and intubation. Pt reports wishes are to keep code status as DNR. Palliative Care will remain available.
--- NOTE | 2021-07-06 18:03 | NUR ---
SHIFT SUMMARY: NO ACUTE EVENTS. BEHAVIOR APPROPRIATE, NO PRN MEDICATIONS GIVEN THIS SHIFT, RESTRAINTS D/C'D. DENIED PAIN. GETTING UP TO BSC WITH ASSISTANCE, AMBULATING WITH FWW, GAIT UNSTEADY. A&O X 1-2, HAVING VISUAL HALLUCINATIONS OCCASIONALY. TOLERATING PO INTAKE. WORKED WITH PT/OT TODAY.
--- NOTE | 2021-07-07 04:40 | NUR ---
SHIFT SUMMARY PT IS RESTING IN BED WITH EYES CLOSED, RESTED WELL THROUGHOUT SHIFT. PT VERY COOPERATIVE, ONLY A FEW INSTANCES OF HALLUCINATIONS AND PARANOIA, EASILY REDIRECTED. NO SIGNIFICANT BEHAVIORAL DISTURBANCES THUS FAR DURING THE SHIFT. PT DENIES PAIN AND DISCOMFORT. NO SEIZURE ACTIVITY DURING SHIFT. LAST BM WAS ON 07/06/21. SCHEDULED MEDICATIONS ADMINISTERED LAST NIGHT WITHOUT ANY ISSUES. BED ALARM ACTIVATED-PT REMAINS IMPULSIVE. BED IS IN LOW POSITION WITH THE CALL LIGHT WITHIN EASY REACH. WILL CONTINUE TO MONITOR.
--- NOTE | 2021-07-07 18:04 | NUR ---
SHIFT SUMMARY NO ACUTE CHANGES THIS SHIFT. OT WALKED IN HALLS WITH PT. SOME PERIODS OF CONFUSION, BUT EASILY REDIRECTABLE. PT SPENT THE REST OF THE DAY RESTING. WILL CONTINUE TO MONITOR.
--- NOTE | 2021-07-08 04:39 | NUR ---
SHIFT SUMMARY PT WITH AUDITORY AND VISUAL HALLUCINATIONS DURING SHIFT. VERY CONFUSED AND EASILY AGITATED, USING FOUL LANGUAGE. IMPULSIVE, JUMPING OUT OF BED AND EVEN WALKED OUT OF HER ROOM INTO THE HALLWAY WHILE UNATTEMPTED X1 EPISODE. PT MEDICATED PER EMAR NEEDED. PT CURRENTLY RESTING IN BED WITH HER EYES CLOSED. DENIED PAIN DURING SHIFT. LAST SHOWERED 07/07/21 DURING DAY SHIFT. LAST BM 07/07/21 WELL. NO SEIZURES DURING SHIFT. BED REMAINS IN LOW POSITION WITH THE CALL LIGHT WITHIN EASY REACH. BED ALARM ACTIVATED. WILL CONTINUE TO MONITOR.
--- NOTE | 2021-07-08 16:55 | NUR ---
SHIFT SUMMARY NO ACUTE CHANGES THIS SHIFT. PT HAS BEEN RESTING COMFORTABLY AND COMPLIANT WITH CARE MOST OF THE DAY. AT SHIFT CHANGE PT WAS AGITATED, BUT SHE HAS SINCE BEEN CALM. WILL CONTINUE TO MONITOR.
--- NOTE | 2021-07-08 21:41 | NUR ---
DR. MARTINEZ PAGED REGARDING PT BEING AGITATED. REQUESTED CURRENT ATIVAN ORDER TO HAVE ROUTE CHANGED FROM IV TO IM. NEW ORDER RECEIVED AT ABOUT 2009. AT 2137, DR. MARTINEZ WAS ROUNDING ON THE FLOOR AND I REQUESTED A DOSE CLARIFICATION TO ATIVAN SINCE THE EXISTING ORDER WAS FOR 5MG, REQUESTED A DOSE DECREASE TO 2MG. NEW ORDER RECEIVED. PT REMAINS RESTLESS, ANXIOUS, JUMPING OUT OF BED, IMPULSIVE AND AGITATED AT TIMES. BED ALARM REMAINS ACTIVATED WITH BED IN LOW POSITION WITH THE CALL LIGHT WITHIN REACH. PT REQUIRING VERY FREQUENT CHECKS FOR SAFTEY.
--- NOTE | 2021-07-09 04:48 | NUR ---
SHIFT SUMMARY PT WAS AGITATED, RESTLESS AND ANXIOUS LAST NIGHT, JUMPING OUT OF BED. NOT EASILY RE-DIRECTED. DR. MARTINEZ WAS NOTIFIED, ORDERS WERE RECEIVED AND CARRIED OUT WITH GOOD EFFECT. PT CURRENTLY RESTING IN BED WITH HER EYES CLOSED. NO SEIZURE ACTIVITY OBSERVED LAST NIGHT. BED ALARM REMAINS ACTIVATED, BED IN LOW POSITION WITH THE CALL LIGHT WITHIN EASY REACH. WILL CONTINUE TO MONITOR.
--- NOTE | 2021-07-09 17:15 | NUR ---
Shift Summary A/Ox3, intermittent confusion. Up to bathroom c 1p FWW and gait. Moderately unsteady gait. Also had shower today with assistance from CLASSROOM TECHNOLOGY COACH. Up to chair for meals x 3. Set off the bed alarm a couple of times which seems to agitate patient a little. Slept most of the day. Did wake up from a nap and attempted to get out of bed. This set off the bed alarm and patient was angry stating "I didn't know you put an alarm on my personal bed too! This is my personal bed. Are we going back to the hospital?" Was easily reoriented. Appetite is good. Denies pain, nausea, vomiting. No acute concerns, WCTM.
--- NOTE | 2021-07-10 04:37 | NUR ---
SHIFT SUMMARY PT RESTED WELL OVERNIGHT. PT CURRENTLY RESTING WITH EYES CLOSED. PT REMAINS WITH EPISODES OF CONFUSION AND FORGETFULNESS BUT WAS NOT AGITATED LAST NIGHT. DURING EPISODES OF CONFUSION, PT WAS EASILY RE-DIRECTED. PT WAS PLEASANT AND COOPERATIVE. NO PRN AGITATION MEDS NEEDED LAST NIGHT. NO COMPLAINTS WERE VOICED. NO SEIZURE ACTIVITY OBSERVED. BED ALARM REMAINS ACTIVATED WITH BED IN LOW POSITION AND CALL LIGHT WITHIN EASY REACH. WILL CONTINUE TO MONITOR.
--- NOTE | 2021-07-10 18:45 | NUR ---
SHIFT SUMMARY. PT A/O X 3 STANDBY ASSIST WITH WALKER. PT STEADY ON FEET AND WAS ABLE TO AVOID BARRIERS WHILE AMBULATING. SHE WAS PLEASANT AND COOPERATIVE T/OUT THE DAY. NO ACUTE CONCERNS THIS SHIFT.
--- NOTE | 2021-07-11 04:55 | NUR ---
A/OX2-3. PT SET OFF BED ALARM MULTIPLE TIMES DURING NOC SHIFT D/T INSOMNIA. A LITTLE UNSTEADY, BUT USES FWW W/ 1 PA TO BR. NO IV - MD AWARE. PT DID HAVE A FEW VISUAL HALLUCINATIONS EARLY IN SHIFT, BUT WAS EASILY REDIRECTABLE. SHE IS A PLACEMENT AT THIS POINT TO [facility].
--- NOTE | 2021-07-11 18:01 | NUR ---
SHIFT SUMMARY; PATIENT HAD MUCH DIFFICULTY STAYING OUT OF OTHER PATIENTS ROOMS TODAY. SHE WAS SREDIRECTED OFTEN AND WAS A ONE TO ONE MOST OF DAY WITH THIS RN SITTING RIGHT OUTSIDE OF HER ROOM. ANGELIKAT TRIED TO EXIT UNIT BANGING ON DOORWAY AND EVEN TRYING TO EXIT OUT BACK OF UNIT. ATTEMPTS TO REDIRECT ARE MET WITH RESISTANCE AND ONLY LASTING A FEW MOMENTS AT BEST. PATIENT NOTED TO STRIP CLOTHING OFF AND LAY ON FLOOR OF ROOM X 2. SHE BECAME ANGRY AND STRIKING OUT AT STAFF AND WAS GIVEN A BENADRYL, ATIVAN AND HALDOL. GIVEN IM PER PHONE CONVERSATION WITH THIS RN. PATIENT IS PLACED IN VEST, SOFT WRIST AND SIDE RAILS UP X 4. SHE HAS MANAGED TO GET OUT OF THE SOFT WRISTS RESTRAINTS X 3 AND IS NOTED TO RIP THE VEST TRYING TO GET IT OFF. SHE THROWS HER LEGS OVER THE SIDE RAILS. THIS RN SITS WITH NATHALIE AND DISCUSSES HER BEHAVIOR AND PATIENT DOES NOT THINK SHE IS ACTING OUT. SHE CLAIMS HER PARENTS AND HER GRAND PARENTS ARE HERE AND SHE CAN HEAR AND SEE THEM. PATIENT REFUSES TO BELIEVE THEY ARE NOT HERE. SHE THROWS HER FOOD ON THE FLOOR AND THEN BLAMES STAFF. WILL CONTINUE TO MONITOR THIS PATIENT UNTIL REPORT AND SHIFT CHANGE. TIFFANIE FARMER RN
--- NOTE | 2021-07-11 20:39 | NUR ---
AWAKE, PULLING AT KAYLI VEST, ATTEMPTING TO CLIMB OUT OF BED, REMAINS VERY UNSTEADY WITH GAIT, DIFFICULT TO REDIRECT. TOLERATES HS MEDS WITH APPLESAUCE. HOB REMAINS ELEVATED FOR ASPIRATION PRECAUTIONS. CALL LIGHT IN REACH
--- NOTE | 2021-07-12 05:19 | NUR ---
ORDER PROCESSING SPECIALIST SUMMARY AWAKE AND INTERMITTENTLY AGITATED THROUGHOUT NOCT. MEDICATED PER SEP, BUT REMAINED AGITATED. VOICED SEEING PERSON ON THE CEILING. HIGH FALL RISK, DIFFICULT TO REDIRECT. REMAINS IN KAYLI VEST AND BILAT WRIST RESTRAINTS FOR SAFETY. INTERMITTENTLY PULLING OFF WRIST RESTRAINTS AND TRING TO CLIMB OUT OF BED. WAS ASSISTED TO BEDSIDE COMMODE TO VOID, BUT EVEN THEN TRIED TO GET UP A FEW TIMES, ALMOST FALLING UNTIL ASSISTED BACK TO BED. CALL LIGHT IN REACH.
--- NOTE | 2021-07-12 17:15 | NUR ---
SHIFT SUMMARY; PATIENT HAD UNEVENTFUL DAY TODAY. SHE SLEPT FOR MOST OF DAY ONLY WAKING TO EAT LUNCH AND TO TAKE HER AM MEDICATIONS. ORDER RECEIVED TO DC NICOTINE PATCH FOR THIS PATIENT SINCE SHE MAY BE HAVING A REACTION TO IT PER . TIFFANIE FARMER RN
--- NOTE | 2021-07-13 04:18 | NUR ---
SHIFT SUMMARY PT HAS SLEPT MOST OF THE SHIFT AND MOST OF DAYSHI ALSO. PT EASILY AWAKES TO VERBAL STIMULI AND FOR NURSING CARE. REPORT FROM DAYSHIFT RN THAT PT HAD NOT SLEPT FOR 2 DAYS DUE TO AGITIATION, SO IT SEEMS THAT PT IS NOW CATCHING UP ON SLEEP. PT HAS HAD NO AGIATION THIS SHIFT AND HAS BEEN COOPERATIVE WITH CARE. VITALS ARE STABLE, ASSESSMENT UNCHANGED. BED IN LOWEST POSITION, CALL LIGHT WITHIN REACH.
--- NOTE | 2021-07-13 17:21 | NUR ---
SUMMARY PT SITTING UP IN BED WATCHING TV, PT HAS BEEN PLEASANT AND COOPERATIVE WITH CARE T/O THE DAY, OFTEN IMPULSIVE AND FORGETS TO USE THE CALL LIGHT, PT UP WITH 1P ASSIST, PT WORKED WITH PT/OT, DIETER WELL, VSS, NO COMPLAINTS, WILL CONT TO MONITOR
--- NOTE | 2021-07-14 04:31 | NUR ---
SHIFT SUMMARY: PATIENT IS ALERT AND ORIENTED TO SELF AND PLACE. PATIENT HAS SLEPT WELL THIS SHIFT, VSS, NO REPORTS OF PAIN. CONFUSION INCREASED UPON FIRST WAKING, UNABLE TO LOCATE BATHROOM WITHOUT ASSISTANCE FROM STAFF. PATIENT IS PLESANTLY CONFUSED.
--- NOTE | 2021-07-14 17:07 | NUR ---
PT QUITE PLEASNT COOP TODAY. NO C/O PAIN. IS DIRECTABLE FOR ME TODAY. DID AMBULATE TO BATHROOM WITH FWW AND GAIT BELT WITH EASE. NO NEW CONCERNS NOTED. BED IN LOW POSITION, CALL LITE N REACH, BED ALARM ON FOR SAFETY
--- NOTE | 2021-07-15 06:28 | NUR ---
SHIFT SUMMARY: PATIENT REMAINS A&O TO SELF AND PLACE WHILE AWAKE. UPON AWAKENING FROM SLEEP PATIENT IS CONFUSED TO PLACE BUT EASILY REORIENTED. SBP IS IN THE HIGH 90'S DURING SLEEP HOURS, PATIENT IS ASYMPTOMATIC. PATIENT IS INSTRUCTED TO CALL FOR ASSIST OOB, BED ALARM IS ON FOR SAFETY.
--- NOTE | 2021-07-15 18:33 | NUR ---
PT PLEASANT TODAY. NO NEEDS OR CONCERNS NOTED TODAY. DID NOT SHOWER TODAY. DID AMBULATE TO BATHROOM WITHOUT CONCERNS TODAY . BED IN LOW POSITION, ALL LITE IN REACH. BED ALARM ON FOR SAFETY
--- NOTE | 2021-07-16 06:14 | NUR ---
SHIFT SUMMARY: PATIENT HAS NO COMPLIANTS. ATE 100% OF SNACK. WHILE AWAKE USES CALL DUBON FOR ASSIST TO THE BATHROOM BUT DOES NOT DURING SLEEP. GAIT IS STILL UNSTEADY. BED ALARM IS ON FOR SAFETY.
--- NOTE | 2021-07-16 07:23 | NUR ---
ASSUMED CARE: PT APPEARS TO BE RESTING QUIETLY AT THIS TIME. NO ACUTE NEEDS OR CONCERNS.
--- NOTE | 2021-07-16 09:30 | NUR ---
NURSE CAME TO BEDSIDE WITH PT'S MEDS AND PT STATED SHE WOULD NOT TAKE MEDS UNTIL SOMEONE TOLD HER WHAT HER DISCHARGE PLAN WAS AND FOUND OUT WHAT WHERE HER DOGS WENT. REVIEWED THE DR'S NOTES AND RELAYED TO PT THAT DISCHARGE IS RELAYED FOR A SAFE DISCHARGE PLAN. PT FRUSTRATED BECAUSE SHE STATES SHE WANTS TO LIVE ALONE AND BE LEFT ALONE, DOESN'T WANT SOMEONE FOLLOWING HER ALL THE TIME. ASKED HER IF THIS RN COULD CALL RELATIVES TO FIND OUT ABOUT DOGS AND SHE STATED THAT HER RELATIVES ALL LIVE OUT OF STATE AND WOULD NOT KNOW WHERE DOGS ARE. TOLD HER I WOULD LET HER KNOW IF I HEARD OR SAW ANYTHING. PT WAS THEN AGREEABLE TO TAKING MEDICATIONS. DR CABRERA CAME TO BEDSIDE TO SEE PT
--- NOTE | 2021-07-16 14:30 | NUR ---
DR KELLY CALLED TO RELAY THAT PT'S DOGS ARE WITH HER ROOMMATE. PT MADE AWARE OF THIS AND IS NOW ASKING WHY SHE CAN'T JUST GO HOME. REORIENTED THAT WE ARE WORKING ON A SAFE DISCHARGE PLAN. PT APPEARS ANNOYED AND STATES SHE WANTS TO GO BACK TO SLEEP
--- NOTE | 2021-07-16 17:42 | NUR ---
SHIFT SUMMARY: PT RESTING QUIETLY AT THIS TIME. REMOTE MONITORING IN PLACE. PT INDEPENDENT IN ROOM AND CONFUSED AND AGITATED AT TIMES. PT HAS BEEN UPDATED ON STATUS OF DOGS BUT WANTS TO KNOW WHEN SHE CAN GO HOME. DISCHARGE PLANNING WORKING ON CASE. NO ACUTE NEEDS AT THIS TIME.
--- NOTE | 2021-07-17 05:34 | NUR ---
SHIFT SUMMARY ALERT. ABLE TO MAKE NEEDS KNOWN. COOPERATIVE WITH CARE. BECOMES DISORIENTED AFTER WAKING. EASILY RE-DIRECTED. VSS/AFEBRILE. INDEPENDENTLY MOVES WITHIN ROOM. STEADY GAIT NOTED. APPEARED TO REST MUCH OF THE NIGHT. NO ACUTE CHANGES OVERNIGHT. BED REMAINS IN LOWEST POSITION. CALL LIGHT WITHIN REACH. REPORT TO ONCOMING RN.
--- NOTE | 2021-07-17 07:12 | NUR ---
ASSUMED CARE: PT RESTING QUIETLY AT THIS TIME. NO ACUTE NEEDS OR CONCERNS.
--- NOTE | 2021-07-17 11:30 | NUR ---
PT'S YACHT BUILDER FROM [facility] CALLED AND STATED THAT SHE HAD SPOKEN TO 3 DIFFERENT SHOWER ROOM ATTENDANT WHO WERE UNSURE OF DC PLAN. HIGHWAY ADMINISTRATIVE ENGINEER CONSULT PLACED IN ORDER FOR THIS TO BE REEVALUATED. CATERING COOK AWARE
--- NOTE | 2021-07-17 18:15 | NUR ---
SHIFT SUMMARY: NEW INTERRELATED SPECIAL EDUCATION TEACHER CONSULT IN PLACE TO DETERMINE DISCHARGE PLAN FOR PT. PT HAS BEEN PLEASANT AND COOPERATIVE THIS SHIFT. NO ACUTE NEEDS OR CONCERNS THIS SHIFT.
--- NOTE | 2021-07-18 04:20 | NUR ---
SHIFT SUMMARY ALERT, ABLE TO MAKE NEEDS KNOWN. COOPERATIVE WITH CARE. NO EPISODES OF PARANOIA. SOME DELUSIONS NOTED. APPEARED TO REST MUCH OF THE NIGHT. NO ACUTE CHANGES AT THIS TIME. BED REMAINS IN LOWEST POSITION. INDEPENDENT IN ROOM. CALL LIGHT AND BELONGINGS WITHIN REACH. REPORT TO ONCOMING RN.
--- NOTE | 2021-07-18 17:49 | NUR ---
SHIFT SUMMARY NO ACUTE CHANGES NOTED TO PT THIS SHIFT. PT IS AAO TO SELF AND SITUATION, FORGETFUL AT TIMES. PT IND IN ROOM. NO C/O PAIN OR ANY DISCOMFORT. DENIES CP, SOB, OR N/V/D. BED AT LOWEST POSITION. CALL LIGHT WITHIN REACH.
--- NOTE | 2021-07-19 04:30 | NUR ---
SHIFT SUMMARY: AOX2, FORGETFUL BUT STATES SHE IS DONG BETTER. INDEPENDENT IN THE ROOM. QUIET THIS SHIFT WITH NO COMPLAINTS OR CONCERNS. VS WNL, AFEBRILE. SLEPT WELL T/O SHIFT. NO CHANGES TO REPORT. AWAITING PLACEMENT. CALL LIGHT IN REACH.
--- NOTE | 2021-07-19 17:16 | NUR ---
SHIFT SUMMARY PT IS AAOX2, FORGETFUL AT TIMES, ABLE TO MAKE NEEDS KNOWN, PLEASANT AND COOPERATIVE TO CARE. NO C/O PAIN OR ANY DISCOMFORT THIS SHIFT. PT IS INDEPENDENT IN ROOM. NO ACUTE CHANGES NOTED TO PT THIS SHIFT. AWAITING PLACEMENT. CALL LIGHT WITHIN REACH.
--- NOTE | 2021-07-20 04:15 | NUR ---
SHIFT SUMMARY ASSUMED CARE AT 1900. NO ACUTE EVENTS OVERNIGHT. PT REMAINED AAOX2, WITH SOME CONFUSION AND FORGETFULNESS BUT WAS RE-DIRECTABLE. ABLE TO VOICE NEEDS. SHE DENIED PAIN AND DID NOT VOICE ANY COMPLAINTS. PT IS CURRENTLY RESTING IN BED WITH HER EYES CLOSED. NO SEIZURES OBSERVED. BED REMAINS IN LOW POSITION WITH THE CALL LIGHT WITHIN EASY REACH. WILL CONTINUE TO MONITOR.
--- NOTE | 2021-07-20 18:47 | NUR ---
SHIFT SUMMARY PATIENT IS ALERT AND ORIENTED X3 SOME CONFUSION, PARANOIA AT TIMES. PLEASANT AND COOPERATIVE WITH CARE. PATIENT GOT A SHOWER TODAY. PATIENT EXPRESSED NEEDING A NOTARY FOR SOME FAMILY OBLIGATIONS. NO ACUTE CHANGES. VITAL SIGNS STABLE. CALL LIGHT WITHIN REACH.
--- NOTE | 2021-07-21 05:59 | NUR ---
SHIFT SUMMARY ASSUMED CARE AT 1900. PT REMAINS AAO X1-2, WITH EPISODES THROUGHOUT THE NIGHT OF INCREASED CONFUSION AND SOME PARANOIA BUT WAS EASILY REDIRECTED. PT IS ABLE TO VOICE HER NEEDS. PT DENIES PAIN AND DISCOMFORT. SCHEDULED MEDICATIONS WERE ADMINISTERED ORDERED. BED REMAINS IN LOWEST POSITION WITH THE CALL LIGHT WITHIN EASY REACH. NO SEIZURES OBSERVED. WILL CONTINUE TO MONITOR.
--- NOTE | 2021-07-21 16:34 | NUR ---
SHIFT SUMMARY PT IS AOX2-3 AND COOPERATIVE WITH CARE. PT DENIES PAIN, N/V, SOB. PT IS INDEPENDENT IN ROOM. APPETITE IS GOOD. PT HAD A VISITOR THIS HEIKE. PT PENDING PLACEMENT. PT WORKED WITH OT THIS SHIFT AND AMBULATED THE HALLS. PT IS IN BED, CALL LIGHT IN REACH, LOW POSITION.
--- NOTE | 2021-07-22 06:57 | NUR ---
SHIFT SUMMARY ASSUMED CARE AT 1900. NO ACUTE EVENTS DURING SHIFT. REMAINS AA0X2 WITH PERIODS OF CONFUSION AND FORGETFULNESS BUT EASILY REDIRECTED. NO COMPLAINTS VOICED. DENIED PAIN. CURRENTLY RESTING IN BED WITH EYES CLOSED. BED REMAINS IN LOW POSITION WITH CALL LIGHT WITHIN EASY REACH. NO SEIZURES OBSERVED. SCHEDULED MEDICATIONS ADMINISTERED.
--- NOTE | 2021-07-22 16:13 | NUR ---
SHIFT SUMMARY PT IS AOX2-3. PT DENIES PAIN, N/V, SOB. PT IS INDEPENDENT IN ROOM AND SHOWERED SELF THIS SHIFT. PT DID NOT HAVE VISITORS THIS SHIFT. PLAN IS FOR PLACEMENT. PT APPETITE IS GOOD. PT IS IN BED, CALL LIGHT IN REACH, LOW POSITION.
--- NOTE | 2021-07-23 06:41 | NUR ---
SHIFT SUMMARY ASSUMED CARE AT 1900. NO ACUTE EVENTS OVERNIGHT. PT RESTED WELL. NO COMPLAINTS VOICED. DENIED PAIN. SCHEDULED MEDICATIONS ADMINISTERED. PT STATES LAST BM WAS 07/22/21. CONTINUES TO AMBULATE IN ROOM INDEPENDENTLY. NO SEIZURES OBSERVED. BED IN LOWEST POSITION WITH THE CALL LIGHT WITHIN EASY REACH. WILL CONTINUE TO MONITOR.
--- NOTE | 2021-07-23 17:34 | NUR ---
SHIFT SUMMARY: NO ACUTE EVENTS. A&O X 2, PLEASANT AND COOPERATIVE. INDEPENDENT IN ROOM. DENIES PAIN. HAD SHOWER. NO BEHAVIORS REQUIRING PRN MEDICATIONS.
--- NOTE | 2021-07-24 04:04 | NUR ---
SHIFT SUMMARY PT IS AA0X2. NO ACUTE EVENTS DURING SHIFT. PT IS INDEPENDENT AND ABLE TO MAKE NEEDS KNOWN . ALL MEDS GIVEN PER EMAR. PT SLEPT MOST OF THE NIGHT . NO COMPLAINTS VOICED. BED IN LOWER POSITION AND CALL LIGHT IN REACH . WILL CONTINUE TO MONITOR.
--- NOTE | 2021-07-24 18:14 | NUR ---
NO ACUTE CHANGES PT AO NO DISTRESS NOTED. CALL LIGHT WITHIN REACH. WILL CONTINUE TO MONITOR.
--- NOTE | 2021-07-25 04:42 | NUR ---
SHIFT REPORT: PT IS A/OX4. SHE REMAINS STEADY ON HER FEET AND AD FRANCISCO IN THE ROOM. THE PT IS CURRENTLY A PLACEMENT AND CASE MANAGEMENT IS ON BOARD. NO NEW CHANGES TO REPORT AT THIS TIME.
--- NOTE | 2021-07-25 11:00 | NUR ---
ASSUMED CARE OF PT. DOZING IN BED BUT WAKENS EASILY. NO REPORT OF PAIN OR DISTRESS. STATES SHES JUST HANGING OUT.
--- NOTE | 2021-07-25 11:16 | NUR ---
SUMMARY: NO ACUTE CHANGES THIS AM. PT IS PLEASANT AND COOPERATIVE WITH CARE. REPORT GIVEN TO FIFI BETANCOURT TO ASSUME CARE FOR REMAINDER OF SHIFT.
--- NOTE | 2021-07-25 16:56 | NUR ---
SHIFT SUMMARY PT INDEPENDENT IN ROOM. SHOWER TAKEN THIS MORNING WITH NO PROBLEM. SITTING IN CHAIR THIS AFTERNOON. NO CHANGE TODAY. NO REPORT ON DISTRESS OR PAIN.
--- NOTE | 2021-07-26 05:19 | NUR ---
SHIFT SUMMARY: AOX4, COOPERATIVE. INDEPENDENT IN THE ROOM, DENIED ANY CONCERNS OR COMPLAINTS THIS SHIFT. TOOK MEDS WITH NO PROBLEMS. VS WNL. NO ACUTE CHANGES, AWAITING PLACEMENT.
--- NOTE | 2021-07-26 17:48 | NUR ---
DAY SHIFT SUMMARY PT A/O X4, CALL LIGHT WITHIN REACH OF PT, PT CALLS APPROPRIATELY. WAITING PLACEMENT. INDEPENDENT IN ROOM. NO CHANGES THIS SHIFT.
--- NOTE | 2021-07-27 04:29 | NUR ---
SHIFT SUMMARY: DONALD BENNETT REMAINED STABLE ALL NIGHT. SHE WAS PLEASANT AND COOPERATIVE, USED HER CALL LIGHT APPROPRIATELY. INDEPENDENT IN THE ROOM. WAITING FOR PLACEMENT.
--- NOTE | 2021-07-27 17:24 | NUR ---
ALERT AND ORIENTED. INDEPENDENT IN THE ROOM.UNLABORED RESPIRATIONS. DENIES ANY PAIN OR DISCOMFORT. NO ACUTE CHANGES. AWAITING POSSIBLE PLACEMENT. TM
--- NOTE | 2021-07-28 04:20 | NUR ---
SHIFT SUMMARY PT HAD AN UNEVENTFUL NIGHT. PLEASANT AND COOPERATIVE. SLEPT MUCH OF THE EVENING. VITAL SIGNS STABLE. NO ACUTE CHANGES THIS SHIFT.
[2021-07-28] MEDS ORDERED: LEVE500 PO (11:05)
[2021-07-28] MEDS ORDERED: QUET200 PO (11:06)
[2021-07-28] MEDS ORDERED: Nicoderm Cq1 EAC1 TOP (11:06)
[2021-07-28] MEDS ORDERED: PANT40 PO (11:06)
--- NOTE | 2021-07-28 15:03 | NUR ---
REVIEW D'C INSTRUCTIONS. PATIENT INSURANCE TO PAY FOR RIDE TO [facility] WHERE SHE CAN GET [facility] AND COAL CRUSHER OPERATOR MEDS THEN TO [facility]. HOME HEALTH TO FOLLOW UP TOMORROW. HH TO MAKE SURE SHE GETS TO FOLLOW UP APPOINTMENT AND IF SHE NEEDS ANYTHING ELSE TILL THEY CAN FINE A [facility] FACILITY FOR HER.REVIEW MEDS AND PATIENT AWARE TO TAKE HER KEPPRA BID SO NEEDS TO TAKE TONIGHT. REVIEW ALL MEDS AND WHICH PRIOR ONES TO NOT TAKE. ANSWER ALL QUESTIONS. VERBALIZES UNDERSTANDING. AWAITING RIDE.
== END 2021-07-28 15:37 | disposition home health service (06) | DRG 870 ==
LOC: ER 10:55 → PCU 15:03 → ICUE 15:03 → MEDS 15:03 → PCU 16:57 → ICUE 06-12 12:47 → PCU 06-18 06:07 → MEDS 06-20 11:55
PROVIDERS: Emergency Medicine; Family Medicine; Internal Medicine; Internal Medicine Critical Care Medicine; Internal Medicine Infectious Disease; Nurse Practitioner Acute Care; Psychiatry & Neurology Neurology; ADMIT Internal Medicine
PROC: 009U3ZX Drainage of Spinal Canal, Percutaneous Approach, Diagnostic (ICD-10-PCS; principal; 2021-06-10)
PROC: HZ2ZZZZ Detoxification Services for Substance Abuse Treatment (ICD-10-PCS; 2021-06-10)
PROC: 0BH18EZ Insertion of Endotracheal Airway into Trachea, Via Natural or Artificial Opening Endoscopic (ICD-10-PCS; 2021-06-12)
PROC: 5A1955Z Respiratory Ventilation, Greater than 96 Consecutive Hours (ICD-10-PCS; 2021-06-12)
DX: A41.9 Sepsis, unspecified organism (principal); G92.8 Other toxic encephalopathy; J96.01 Acute respiratory failure with hypoxia; G04.90 Encephalitis and encephalomyelitis, unspecified; E44.1 Mild protein-calorie malnutrition; G81.94 Hemiplegia, unspecified affecting left nondominant side; Z68.1 Body mass index [BMI] 19.9 or less, adult; E83.42 Hypomagnesemia; Z20.822 Contact with and (suspected) exposure to COVID-19; E83.39 Other disorders of phosphorus metabolism; Z66 Do not resuscitate; E87.6 Hypokalemia; F41.8 Other specified anxiety disorders; F10.20 Alcohol dependence, uncomplicated; D63.8 Anemia in other chronic diseases classified elsewhere; F20.9 Schizophrenia, unspecified; G40.909 Epilepsy, unspecified, not intractable, without status epilepticus; E78.5 Hyperlipidemia, unspecified; K21.9 Gastro-esophageal reflux disease without esophagitis; F12.90 Cannabis use, unspecified, uncomplicated; F17.210 Nicotine dependence, cigarettes, uncomplicated; Z79.899 Other long term (current) drug therapy
CPT/HCPCS: 0241U; 31500; 36415; 36556; 36600; 51702; 62270; 62328; 70450; 70551; 70553; 71045; 72156; 72157; 72158; 80048; 80053; 80069; 80202; 81001; 82140; 82330; 82550; 82607; 82728; 82746; 82803; 82945; 83519; 83520; 83540; 83550; 83605; 83735; 84100; 84132; 84145; 84157; 84443; 84484; 85025; 85027; 85610; 85651; 85730; 86140; 86256; 86376; 86611; 86618; 86788; 86789; 86800; 87040; 87070; 87205; 87252; 87254; 87483; 88108; 88312; 89051; 92526; 92610; 93005; 93010; 94002; 94003; 94760; 94762; 95819; 96374; 96375; 97110; 97112; 97116; 97116-CQ; 97129; 97162; 97164; 97167; 97168; 97530; 97535; A9270; A9579; C1751; C1752; C9113; G0480; J0133; J0290; J0360; J0610; J0696; J1200; J1630; J1650; J1953; J2060; J2250; J2704; J3370; J3411; J3475; J3480; J7030; J7040; J7050; J7060; U0004

== ENCOUNTER → 2024-03-14 | Outpatient (CLI) | payer OTHER ==
[~2024-03-14] MED LIST: BUPR150ER PO; ESCI10 PO; LEVE500 PO; MASOPHEN325 M4 PO; Nicoderm Cq1 EAC1 TOP; PANT40 PO; QUET200 PO
[2024-03-14 17:48] LABS: BASOPHILS ABSOLUTE AUTO 0.07 K/mm3 (0.00-0.23); BASOPHILS PERCENT AUTO 1 % (0-2); EOSINOPHILS ABSOLUTE AUTO 0.16 K/mm3 (0.00-0.68); EOSINOPHILS PERCENT AUTO 2 % (0-6); Hematocrit 37.9 % (33.0-51.0); Hemoglobin 12.9 g/dL (11.5-16.0); IMMATURE GRAN ABSOLUTE AUTO 0.01 K/mm3 (0.00-0.10); IMMATURE GRAN PERCENT AUTO 0 % (0-1); LYMPHOCYTES ABSOLUTE AUTO 2.29 K/mm3 (0.84-5.20); LYMPHOCYTES PERCENT AUTO 34 % (21-46); MONOCYTES ABSOLUTE AUTO 0.87 K/mm3 (0.16-1.47); MONOCYTES PERCENT AUTO 13 % (4-13); Mean Corpuscular HGB 30.6 pg (26.0-34.0); Mean Corpuscular Volume 90 fL (80-100); NEUTROPHILS ABSOLUTE AUTO 3.41 K/mm3 (1.96-9.15); NEUTROPHILS PERCENT AUTO 50 % (41-73); RDW Coefficient Variation 13.3 % (11.7-14.2); Red Blood Cell Count 4.21 M/mm3 (3.80-5.20); White Blood Cell Count 6.81 K/mm3 (4.00-11.30)
[2024-03-14 18:05] LABS: Alanine Aminotransfer (ALT/SGP 17 U/L (12-78); Albumin, Blood 3.9 g/dL (3.4-5.0); Albumin/Globulin Ratio 1.2 (0.8-1.8); Alk Phos 53 U/L (50-136); Anion Gap 8 mmol/L (3-11); Aspartate Aminotrans (AST/SGOT 16 U/L (12-37); Bilirubin, Total 0.2 mg/dL (0.1-1.0); Blood Urea Nitrogen 12 mg/dL (8-24); Bun/Creatinine Ratio 21.6 (12.0-20.0); CHOL/HDL RATIO 3.5; CO2, Blood 22 mmol/L (21-32); Calcium, Blood 9.1 mg/dL (8.5-10.1); Chloride, Blood 114 mmol/L (98-108); Cholesterol 181 mg/dL (50-200); Creatinine, Blood 0.56 mg/dL (0.40-1.00); Globulin, Blood 3.3 g/dL (2.2-4.0); Glomerular Filtration Rate 106 (60-); Glucose, Blood 106 mg/dL (70-99); HDL Cholesterol 52 mg/dL (>39); LDL/HDL RATIO 2.1; Low Density Lipoprotein Chol 111 mg/dL (0-110); Potassium, Blood 4.1 mmol/L (3.5-5.5); Sodium, Blood 140 mmol/L (136-145); Total Protein, Blood 7.2 g/dL (6.4-8.2); Triglycerides 89 mg/dL (30-160); Very Low Density Lipoprot Chol 17 mg/dL (6-32)
[2024-03-14 18:07] LABS: Platelet Count 265 K/mm3 (150-400)
== END ==
LOC: LAB SHORT 16:46 → LAB 16:46
PROVIDERS: Physician Assistant
DX: Z51.81 Encounter for therapeutic drug level monitoring (principal); Z79.899 Other long term (current) drug therapy
CPT/HCPCS: 80053; 80061; 82306; 83036; 84443; 85025